=== PATIENT | female | born 1960 | race Caucasian/White ===

== ENCOUNTER 2021-10-03 15:28 | Emergency (ER) | payer BC, OTHER ==
--- OUTSIDE RECORDS SUMMARY | 2021-10-03 15:30 | XMS REPORT | Continuity of Care Document ---
:1960 Author Organization [facility] t Address [address] [place] [address] Care Team Providers Name Role Phone CHASIDY Attending Clinician Unavailable Payers Payer Name Policy Type Policy Number Effective Date Expiration Date S ourjasmyne [employer] MEDICARE ADV [id number] 2019 00:00:00 Problems This patient has no known problems. Allergies, Adverse Reactions, Alerts Allergy Allergy Status Severity Reaction(s) Onset Inactive Treating Comm ents Source Name Type Date Date Clinician DIAZEPAM DRUG Active High ITCHING 2019-0 [facility] INGREDI 7-06 ity of 00:00: [address] MEPERIDI DRUG Active ITCHING 2016-0 Univers NE INGREDI 4-12 ity of 00:00: [address] NO KNOWN Drug Active Univers ALLERGIE Class ity of [facility] Medications This patient has no known medications. Procedures This patient has no known procedures. Encounters Start End Encounter Admission Attending Care Care Encounter Source Date/Time Date/Time Type Type Clinicians Facility Department ID 2019-12-07 2019-12-07 Outpatient R CHASIDY [facility] [id number] [facility] 13:30:00 13:30:00 ERASMO monteiro [facility] Results This patient has no known results.
--- NOTE | 2021-10-03 17:06 | RAD REPORT ---
EXAM DESCRIPTION: RAD - Chest Pa And Lat (2 Views) - 10/03/2021 4:55 pm CLINICAL HISTORY: Cough COMPARISON: None TECHNIQUE: Frontal and lateral views of the chest were obtained. FINDINGS: The lungs are clear of a peripheral mass or consolidation. Mild prominence of the intersti tial pattern is believed be baseline. Heart size is normal and central vasculature is within normal limits. No pleural effusion or pneumothorax seen. No acute bony finding noted. No aortic abnormal ity. IMPRESSION: No acute cardiopulmonary process.
[2021-10-03 18:41] LABS: SARS-COV-2 RT PCR NEGATIVE (NEGATIVE)
--- NOTE | 2021-10-03 22:06 | EDPHYS ---
Physician Documentation [facility] Name: Kandace Worley Age: 61 yrs Sex: Female : 1960 Arrival Date: 10/03/2021 Time: 15:30 Bed 8 Private MD: ED Physician Boris Camargo HPI: 10/03 16:23 This 61 yrs old Female presents to ER via Ambulatory with complaints of Breathing jmm Difficulty, Chest Congestion. 16:23 The patient has shortness of breath at rest. Onset: The symptoms/episode began/occurred jmm gradually. Duration: The symptoms are continuous, and are steadily getting worse. The patient's shortness of breath is aggravated by nothing, is alleviated by nothing. Associated signs and symptoms: Pertinent positives:. Is a 61-year-old female that presents emerged part with complaints of shortness of breath, cough, sore throat, fatigue been over the past 3 days. Patient denies chest pain.. Historical: - Allergies: 18:14 No Known Allergies; ph - PSHx: 15:48 hysterectomy; ll1 - Immunization history:: Client reports receiving the 2nd dose of the Covid vaccine. - Social history:: Smoking status: Patient reports the use of cigarette tobacco products, 1 or 2 cigs/day. ROS: 16:23 Cardiovascular: Negative for chest pain, palpitations, and edema. jmm 16:23 Constitutional: Positive for chills, fatigue. 16:23 ENT: Positive for sore throat. 16:23 Respiratory: Positive for cough, wheezing. 16:23 All other systems are negative. Exam: 16:23 Constitutional: This is a well developed, well nourished patient who is awake, alert, jmm and in no acute distress. Head/Face: atraumatic. Eyes: EOMI, no conjunctival erythema appreciated 16:23 Neck: Trachea midline, Supple Chest/axilla: Normal chest wall appearance and motion. Cardiovascular: Regular rate and rhythm. No edema appreciated 16:23 Abdomen/GI: Non distended, soft Back: Normal ROM Skin: General appearance color normal MS/ Extremity: Moves all extremities, no obvious deformities appreciated, no edema noted to the lower extremities Neuro: Awake and alert Psych: Behavior is normal, Mood is normal, Patient is cooperative and pleasant 16:23 ENT: Posterior pharynx: erythema, that is moderate. 16:23 Respiratory: the patient does not display signs of respiratory distress, Respirations: normal, Breath sounds: wheezing: that is moderate. Vital Signs: 15:46 BP 159 / 71; Pulse 68; Resp 22; Temp 98.8; Pulse Ox 95% ; Weight 107.95 kg; Height 5 ll1 ft. 3 in. (160.02 cm); Pain 5/10; 17:30 BP 146 / 78; Pulse 68; Resp 18; Pulse Ox 100% on Nebulizer Mask; ph 19:10 BP 144 / 67; Pulse 70; Resp 18; Pulse Ox 95% on R/A; ph 21:13 BP 130 / 69; Pulse 103; Resp 17; Pulse Ox 95% on R/A; ll3 15:46 Body Mass Index 42.16 (107.95 kg, 160.02 cm) ll1 MDM: 17:07 Patient medically screened. [facility] 22:03 Data reviewed: vital signs, nurses notes. Counseling: I had a detailed discussion with [facility] the patient and/or guardian regarding: the historical points, exam findings, and any diagnostic results supporting the discharge/admit diagnosis, lab results, radiology results, the need for outpatient follow up, to return to the emergency department if symptoms worsen or persist or if there are any questions or concerns that arise at home. ED course: Decreased wheezing on auscultation. Patient vies follow-up PCP and otherwise given strict return precautions. Patient understood agrees plan of care.. 10/03 17:06 Order name: COVID-19/FLU A+B (Document "Date of Onset" if Symptomatic); Complete Time: [facility] 18:42 10/03 18:27 Order name: Strep; Complete Time: 19:01 [facility] 10/03 16:22 Order name: XRAY Chest Pa And Lat (2 Views); Complete Time: 17:08 rn 10/03 19:02 Order name: Throat Culture [facility] 10/03 19:14 Order name: Saline Lock; Complete Time: 20:39 [facility] Administered Medications: 17:35 Drug: Xopenex (levalbuterol) (3) 1.25 mg Route: Inhalation; ph 19:12 Follow up: Response: No adverse reaction ph 17:35 Drug: Decadron (dexamethasone) 10 mg Route: IM; Site: right deltoid; ph 19:12 Follow up: Response: No adverse reaction ph 20:13 Drug: Albuterol - atroVENT (ipratropium) (3:1) (2.5 mg - 0.5 mg) 3 ml Route: Nebulizer; ll3 21:12 Follow up: Response: No adverse reaction; Marked relief of symptoms ll3 20:38 Drug: Magnesium Sulfate 1 grams Route: IVPB; Infused Over: 1 hrs; Site: right forearm; vc1 21:12 Follow up: Response: No adverse reaction; Marked relief of symptoms; IV Status: ll3 Completed infusion; IV Intake: 100ml Disposition: 10/04 07:13 Co-signature as Attending Physician, Boris Camargo MD. rn Disposition Summary: 10/03/21 22:04 Discharge Ordered Location: Home [facility] Condition: Stable [facility] Diagnosis - Acute pharyngitis, unspecified [facility] - Wheezing [facility] Followup: [facility] - With: Private Physician - When: 2 - 3 days - Reason: Recheck today's complaints, Continuance of care, Re-evaluation by your physician Discharge Instructions: - Discharge Summary Sheet [facility] - Acute Bronchitis, Adult [facility] - Pharyngitis [facility] Forms: - Medication Reconciliation Form [facility] - Thank You Letter [facility] - Antibiotic Education [facility] - Prescription Opioid Use [facility] Prescriptions: - albuterol sulfate 90 mcg/actuation Inhalation HFA aerosol inhaler - inhale 2 puff by INHALATION route every 4 hours; 1 Pump; Refills: 0, Product [facility] Selection Permitted - cefdinir 300 mg Oral capsule - take 1 capsule by ORAL route every 12 hours; 20 capsule; Refills: 0, Product [facility] Selection Permitted - Prednisone 20 mg Oral Tablet - take 3 tablets by ORAL route once daily for 5 days; 15 tablet; Refills: 0, [facility] Product Selection Permitted Signatures: Dispatcher [employer] EDShahbaz Toure PA PA [facility] Boris Camargo MD MD rn Hall, Patricia, RN RN ph Lewis, Lynsay, RN RN ll1 Lucas Syed RN RN ll3 Myrna De Los Santos RN RN vc1 Corrections: (The following items were deleted from the chart) 10/03 15:50 15:48 Allergies: Valium; ll1 ll1 15:50 15:48 PMHx: Hypertensive disorder; ll1 ll1 15:50 15:48 PMHx: RLS; ll1 ll1 15:50 15:48 PMHx: Diabetes mellitus; ll1 ll1 15:50 15:48 PMHx: panic attacks; ll1 ll1 15:50 15:48 PSHx: None; ll1 ll1
--- NOTE | 2021-10-03 22:06 | ER ---
Nurse's Notes [facility] Name: Kandace Worley Age: 61 yrs Sex: Female : 1960 Arrival Date: 10/03/2021 Time: 15:30 Bed 8 Private MD: Diagnosis: Acute pharyngitis, unspecified;Wheezing Presentation: 10/03 15:46 Chief complaint: Patient states: SOB, cough, congestion, sore throat, achy ears since ll1 Saturday. No known fever. Hoarse voice. Coronavirus screen: Vaccine status: Patient reports receiving the 2nd dose of the covid vaccine. Client denies travel out of the [place] in the last 14 days. congestion, cough unrelated to allergies, difficulty breathing, fatigue, headache, muscle pain, sore throat, Client presents with at least one sign or symptom that may indicate coronavirus-19. Standard/surgical mask placed on the client. Ebola Screen: Patient denies travel to an Ebola-affected area in the 21 days before illness onset. Initial Sepsis Screen: Does the patient meet any 2 criteria? No. Patient's initial sepsis screen is negative. Does the patient have a suspected source of infection? Yes: Productive cough/pneumonia. Risk Assessment: Do you want to hurt yourself or someone else? Patient reports no desire to harm self or others. Onset of symptoms was September 30, 2021. 15:46 Method Of Arrival: Ambulatory ll1 15:46 Acuity: JAK 3 ll1 Triage Assessment: 15:50 General: Appears uncomfortable, ill, Behavior is cooperative, appropriate for age. ll1 Pain: Complains of pain in head Quality of pain is described as aching. Neuro: Reports headache. Respiratory: Reports shortness of breath cough that is Onset: The symptoms/episode began/occurred 3-4 days, the patient has moderate shortness of breath. Historical: - Allergies: 18:14 No Known Allergies; ph - PSHx: 15:48 hysterectomy; ll1 - Immunization history:: Client reports receiving the 2nd dose of the Covid vaccine. - Social history:: Smoking status: Patient reports the use of cigarette tobacco products, 1 or 2 cigs/day. Screenin:10 Abuse screen: Denies threats or abuse. Denies injuries from another. Nutritional ph screening: No deficits noted. Tuberculosis screening: No symptoms or risk factors identified. Fall Risk None identified. Assessment: 17:11 General: Appears in no apparent distress. Behavior is calm, cooperative, appropriate ph for age. Pain: Complains of pain in right ear and left ear. Neuro: Paige Agitation-Sedation Scale (RASS): 0 - Alert and Calm Level of Consciousness is awake, alert, obeys commands, Oriented to person, place, time, situation. Cardiovascular: Reports shortness of breath, Capillary refill < 3 seconds in bilateral fingers Patient's skin is warm and dry. Respiratory: Reports shortness of breath cough that is Airway is patent Respiratory effort is even, unlabored, Respiratory pattern is regular, symmetrical. GI: No signs and/or symptoms were reported involving the gastrointestinal system. EENT: Reports pain in right ear and left ear when swallowing. Derm: Skin is intact, Skin is pink, warm \T\ dry. 21:13 Reassessment: Patient and/or family updated on plan of care and expected duration. Pain ll3 level reassessed. Patient is alert, oriented x 3, equal unlabored respirations, skin warm/dry/pink. Patient states symptoms have improved. 22:34 Cardiovascular: Rhythm is regular. Respiratory:. vc1 Vital Signs: 15:46 BP 159 / 71; Pulse 68; Resp 22; Temp 98.8; Pulse Ox 95% ; Weight 107.95 kg; Height 5 ll1 ft. 3 in. (160.02 cm); Pain 5/10; 17:30 BP 146 / 78; Pulse 68; Resp 18; Pulse Ox 100% on Nebulizer Mask; ph 19:10 BP 144 / 67; Pulse 70; Resp 18; Pulse Ox 95% on R/A; ph 21:13 BP 130 / 69; Pulse 103; Resp 17; Pulse Ox 95% on R/A; ll3 15:46 Body Mass Index 42.16 (107.95 kg, 160.02 cm) ll1 ED Course: 15:30 Patient arrived in ED. am2 15:48 Triage completed. ll1 15:50 Arm band placed on. ll1 16:29 Shahbaz Marrero PA is PHCP. m 16:29 Boris Camargo MD is Attending Physician. jmm 16:56 XRAY Chest Pa And Lat (2 Views) In Process Unspecified. EDMS 17:09 Bonita Acevedo, RN is Primary Nurse. ph 17:12 Patient has correct armband on for positive identification. Bed in low position. Call ph light in reach. Side rails up X 1. network security officer on. Pulse ox on. Door closed. Noise minimized. Warm blanket given. 18:14 No provider procedures requiring assistance completed. ph 18:36 Strep swab sent to lab. vg1 19:27 Primary Nurse role handed off by Bonita Acevedo RN mw2 20:38 Inserted saline lock: 22 gauge in right forearm, using aseptic technique. vc1 22:35 IV discontinued, intact, bleeding controlled, No redness/swelling at site. Pressure vc1 dressing applied. Administered Medications: 17:35 Drug: Xopenex (levalbuterol) (3) 1.25 mg Route: Inhalation; ph 19:12 Follow up: Response: No adverse reaction ph 17:35 Drug: Decadron (dexamethasone) 10 mg Route: IM; Site: right deltoid; ph 19:12 Follow up: Response: No adverse reaction ph 20:13 Drug: Albuterol - atroVENT (ipratropium) (3:1) (2.5 mg - 0.5 mg) 3 ml Route: Nebulizer; ll3 21:12 Follow up: Response: No adverse reaction; Marked relief of symptoms ll3 20:38 Drug: Magnesium Sulfate 1 grams Route: IVPB; Infused Over: 1 hrs; Site: right forearm; vc1 21:12 Follow up: Response: No adverse reaction; Marked relief of symptoms; IV Status: ll3 Completed infusion; IV Intake: 100ml Intake: 21:12 IV: 100ml; Total: 100ml. ll3 Outcome: 22:04 Discharge ordered by MD. self 22:35 Discharged to home ambulatory, with family. vc1 22:35 Condition: good 22:35 Discharge instructions given to patient, Instructed on discharge instructions, follow up and referral plans. medication usage, Demonstrated understanding of instructions, follow-up care, medications, Prescriptions given X 2. 22:35 Patient left the ED. vc1 Signatures: Dispatcher [employer] EDMS Shahbaz Marrero PA PA jmm Hall, Patricia, RN RN ph Moreno, Amanda am2 Eldon Jerome mw2 Mary Hallman RN RN vg1 Melanie Gallardo RN RN ll1 Lucas Syed RN RN ll3 Myrna De Los Santos RN RN vc1 Corrections: (The following items were deleted from the chart) 15:50 15:48 Allergies: Valium; 1 ll1 15:50 15:48 PMHx: Hypertensive disorder; 1 ll1 15:50 15:48 PMHx: RLS; [place] [id number] 15:50 15:48 PMHx: Diabetes mellitus; [facility] 15:50 15:48 PMHx: panic attacks; [facility] 15:50 15:48 PSHx: None; 1 1
[2021-10-04 00:38] VITALS: TEMP 98.8
[2021-10-04 00:41] VITALS: O2SAT 95
[2021-10-04 00:43] VITALS: BP 130/69
== END 2021-10-03 22:35 | disposition home or self-care (01) ==
LOC: ER 15:28
DX: J02.9 Acute pharyngitis, unspecified (principal); R06.2 Wheezing; R06.02 Shortness of breath; Z20.822 Contact with and (suspected) exposure to COVID-19; F17.210 Nicotine dependence, cigarettes, uncomplicated
CPT/HCPCS: 96365; 87070; 87081; 0240U; 71046; 94640; 96372; 99285

== ENCOUNTER 2022-01-09 11:54 | Day surgery (SDC) | payer OTHER ==
[2022-01-04 11:59] LABS: Absolute Lymphocytes (CBC) 2.3 K/uL (0.7-4.9); Hematocrit 39.9 % (36.0-45.0); Lymphocytes % 34.6 % (15.3-44.8); MCV 85.3 fL (80-100); MPV 7.7 fL (7.6-11.3); RBC Red Blood Cell Count 4.68 M/uL (3.86-4.86)
[2022-01-04 12:20] LABS: Potassium 4.1 mmol/L (3.5-5.1)
[2022-01-04 12:22] LABS: SARS-CoV-2 Antigen Rapid Res Negative (Negative)
--- NOTE | 2022-01-04 13:54 | EKG ---
Test Date: 2022-01-04 Test Time: 12:01:01 Bobbin Handler: MICKY MEASUREMENT RESULTS: Intervals: Rate: 46 MA: 144 QRSD: 86 QT: 470 QTc: 411 Bedias: P: 68 MA: 144 QRS: 8 T: 56 INTERPRETIVE STATEMENTS: Marked sinus bradycardia Abnormal ECG Compared to ECG 12/11/2002 12:47:00 No significant changes Electronically Signed On 01-04-22 13:54:30 CDT by Nasim Zapien
--- NOTE | 2022-01-05 15:10 | EKG ---
Test Date: 2022-01-04 Test Time: 12:01:39 Biomedical Engineering Supervisor: TF MEASUREMENT RESULTS: Intervals: Rate: 51 WY: 146 QRSD: 84 QT: 472 QTc: 435 Indian: P: 72 WY: 146 QRS: 6 T: 56 INTERPRETIVE STATEMENTS: Sinus bradycardia Otherwise normal ECG Compared to ECG 01/04/2022 12:01:01 No significant changes Electronically Signed On 01-05-22 15:08:19 CDT by Nasim Zapien
[~2022-01-09 11:54] MED LIST: CEFAZOLIN 2 GM IN 0.9% NACL 0 GM/0 ML BAG ONE; Ringers Lactate 0 ML IV ONE
[2022-01-09] MEDS ORDERED: NA CHLORIDE 0.9% 1,000 ML ONE (12:19)
[2022-01-09] MEDS ORDERED: CEFAZOLIN SODIUM 1 GM/VIAL ONE (12:19)
[2022-01-09] MEDS ORDERED: dexAMETHasone 4 MG/ML VIAL ONE (13:35)
[2022-01-09] MEDS ORDERED: FENTANYL CITR 100 MCG/2 ML ONE (13:35)
[2022-01-09] MEDS ORDERED: LIDOCAINE 1% MPF 5 ML VIAL ONE (13:35)
[2022-01-09] MEDS ORDERED: ROPLVACAINE HCL 40 ML ONE (13:36)
[2022-01-09] MEDS ORDERED: MIDAZOLAM HCL 2 MG/2 ML INJ ONE (13:37)
[2022-01-09] MEDS ORDERED: LIDOCAINE 2% MPF 5 ML VIAL ONE (14:18)
[2022-01-09] MEDS ORDERED: ROCURONIUM 50 MG/5 ML VIAL IV ONE (14:18)
[2022-01-09] MEDS ORDERED: propofoL 200 MG/20 ML VIAL IV ONE (14:18)
[2022-01-09] MEDS ORDERED: ONDANSETRON 4 MG/2 ML VIAL ONE (14:20)
[2022-01-09] MEDS ORDERED: VECURONIUM 10 MG/VIAL IV ONE (15:03)
[2022-01-09] MEDS ORDERED: FENTANYL CITR 250 MCG/5 ML ONE (15:03)
[2022-01-09] MEDS ORDERED: NS 0.9% VIAL 0 ML ONE (15:03)
[2022-01-09] MEDS ORDERED: EPHEDRINE SULF 50 MG/ML VIAL ONE (15:31)
[2022-01-09] MEDS ORDERED: GLYCOPYRROLATE 0.2 MG/ML SYR ONE (16:02)
[2022-01-09] MEDS ORDERED: NEOSTIGMINE 1 MG/ML -10 ML VIAL ONE (16:02)
[2022-01-09] MEDS ORDERED: HYDROMORPHONE HCL 1 MG/ML INJ ONE (16:48)
[2022-01-09 17:15] VITALS: BP 118/56; TEMP 97.6; O2SAT 95
[2022-01-09] MEDS: HYDROCODONE/APAP 5/325 MG TAB ONE (17:27)
--- NOTE | 2022-01-09 21:07 | OP ---
Date of Procedure: 01/09/2022 Surgeon: Shon Hatfield MD Preoperative Diagnoses: Right shoulder impingement, acromioclavicular arthritis, possible biceps pat hology, and at least a near full-thickness rotator cuff tear. Postoperative Diagnoses: 1.Fraying of the biceps anchor. 2.Downward sloping acromion with impingement. 3.Significant acromioclavicular arthritis. 4.Small full-thickness rotator cuff tear. Estimated Blood Loss: 20 cc. Complications: There were no complications. Specimen: No pathology specimen sent. Indications For Operation: Ms. Worley is a 62-year-old female, who has been seen by other physician s in the past. She has had an MRI by other physicians in the past and the MRI demonstrated what appe ared to be a high-grade partial-thickness tear of the rotator cuff. Despite conservative measures, s he was unable to obtain relief. She also does have acromioclavicular arthritis by x-ray and MRI. Ri sks, benefits, and alternatives to different methods of treating this have been discussed with the kaylah broussard including those associated with the planned procedure. She says she understands things as pres ented and wishes to proceed. She says she also does understand the long rehabilitated time that is n eeded. Description Of Procedure: The patient was taken to the operating room and placed in supine position. General anesthesia was obtained by Anesthesia staff. Following this, she was then placed in the be ach chair position, where her head and neck were appropriately positioned by Anesthesia. After this, we had good visualization and her right upper extremity was then prepped and draped in usual sterile fashion for arthroscopy. A standard posterior arthroscopic portal was then made and the arthroscopi c camera was passed atraumatically with 1 pass into the shoulder. She does have a very large arm chula ing anatomic landmarks difficult, however, this was not overly difficult. The shoulder was then exam ined. The biceps tendon itself appeared to be doing quite well, however, there is some fraying of th e biceps anchor as well as some fraying of the undersurface of the rotator cuff. Care was taken to r emain lateral to the coracoid and somewhat superior as a second anterior incision was then made. Thi s is a very large shoulder, it is difficult to establish new landmarks, however, this was also fortun ately quite easy entering in at the planned position without difficulty. After this, the cannula was used and a 3.5 shaver was then used to debride back the undersurface of the rotator cuff as well as the fraying at the biceps anchor. After this, the arthroscopic instruments were removed. Posterior portal was then stapled shut. The arm was then re-prepped and gloves and equipment were changed. Af ter this, anatomic landmarks were again difficult to identify because of the patient's size, however, an anterior incision, which is slightly larger what I usually make, is positioned over the midportio n of the acromion. This was taken down carefully through the skin only. Meticulous hemostasis being maintained using Bovie electrocautery. This leads down to a significant amount of adipose tissue, w hich we were able to divide using scissors and knife until we reached the muscle and acromion. After this, the scissors were used to gently spread and allow this as working as a working portal. The an terior leading edge of the deltoid was then carefully detached from the acromion up to the level of t he clavicle. This was then tagged for later repair. A Miguel was used to establish a good distanc e between the acromion and shoulder and the acromioclavicular ligament is divided. This was also tag ged by a small anterior acromioplasty as well as the subacromial acromioplasty was then performed usi ng a combination of saw as well as a rasp. After this has been performed, there was palpation of the acromioclavicular joint, which appeared to be quite involved and decision was made to proceed with a standard distal clavicle excision, removing only as much as it is necessary to allow for full crosse d-arm adduction without impingement. Care was taken to maintain the inferior ligaments. The rotator cuff was then visualized. There did appear to be a small tear of the anterior leading edge. This d id appear to be also full-thickness. Decision was made to move forward with formal repair using a Ju libertyerKnot suture anchor and it was tied down in a watertight fashion. There were no further rotator c uff pathology that could be readily identified. The wound was irrigated and the deltoid was then rep aired over the end of the clavicle to the posterior musculature, this was followed by repair of the d eltoid through a bone tunnel using Ethibond as well as oversewn using Vicryl sutures. After this was again irrigated and the skin was closed using aris, the patient was then placed in a sterile dres sing as well as a sling, awakened, and taken to recovery room. GIANLUCA Voice ID: [id number] Report ID: [id number]
== END 2022-01-09 17:48 | disposition home or self-care (01) ==
LOC: OR 11:54
PROVIDERS: ATTEND Orthopaedic Surgery
PROC: 0RNJ4ZZ Release Right Shoulder Joint, Percutaneous Endoscopic Approach (ICD-10-PCS; 2022-01-09)
PROC: 0RNJ0ZZ Release Right Shoulder Joint, Open Approach (ICD-10-PCS; 2022-01-09)
PROC: 0LM14ZZ Reattachment of Right Shoulder Tendon, Percutaneous Endoscopic Approach (ICD-10-PCS; principal; 2022-01-09 14:00)
DX: M75.121 Complete rotator cuff tear or rupture of right shoulder, not specified as traumatic (principal); M75.41 Impingement syndrome of right shoulder; M19.011 Primary osteoarthritis, right shoulder; Z20.822 Contact with and (suspected) exposure to COVID-19
CPT/HCPCS: 29827; 29826; 23130; 93005 ×2; 85025; 80048; 36415; 82947 ×2; 87811; J2704; J1100; J2710; J2250; J3010; J2795; J7030; J2405; J0690; J1170; J7120

== ENCOUNTER 2023-01-09 08:54 | Inpatient (IN) | payer OTHER ==
--- OUTSIDE RECORDS SUMMARY | 2023-01-09 08:58 | XMS REPORT | Continuity of Care Document ---
:1960 Author Organization [facility] Address [address] [place] [address] [place] [id number] Care Team Providers Name Role Phone Keanu Ponce Attending Clinician ERASMO UMAÑA Attending Clinician Unavailable Payers Payer Name Policy Type Policy Number Effective Date Expiration Date S ourjasmyne [employer] MEDICARE ADV [id number] 2019 00:00:00 Problems Condition Condition Condition Status Onset Resolution Last Treating Co mments Source Name Details Category Date Date Treatment Clinician Date [id number] Neck pain Problem Comm on [facility] [id number] Nontraumat Problem C ommon [id number] ic [facility] incomplete - [facility] tear of right [facility] rotator [facility] cuff Center [id number] Nontraumat Problem C ommon [id number] ic Spirit complete - [facility] tear of right [facility] rotator [facility] cuff Center [id number] Pain, Problem Commo n [id number] joint, [facility] shoulder, - [facility] right [facility] [id number] 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[facility] vicular joint [facility] [id number] Status Problem Common post [facility] shoulder - [facility] surgery [facility] Allergies, Adverse Reactions, Alerts Allergy Allergy Status Severity Reaction(s) Onset Inactive Treating Comm ents Source Name Type Date Date Clinician DIAZEPAM DRUG Active High ITCHING [facility] INGREDI 7-06 ity of 00:00: [address] [place] MEPERIDI DRUG Active ITCHING 2017-0 Univers NE INGREDI 4-12 ity of 00:00: [address] NO KNOWN Drug Active Univers ALLERGIE Class ity of [facility] diazepam diazepam Active Unknown Commo n [facility] meperidi meperidi Active Unknown Commo n ne ne [facility] Social History Social Habit Start Date Stop Date Quantity Comments Source Sex Assigned At Com mon [facility] History of Tobacco Use Co mmon [facility] Smoking Status Start Date Stop Date Source Former Smoker 2022-07-09 00:00:00 2022-07-09 00:00:00 [facility] Medications Ordered Filled Start Stop Current Ordering Indication Dosage Frequency Signature Comments Components Source Medication Medication Date Date Medication? Clinician (SIG) Name Name Lidocaine Lidocaine 0 No 10mg Com 07-04 Spirit 00:00: [facility] Kenalog Kenalog 0 No 40mg Common (Triamcinol (Triamcinol 2-01 S pirit one) one) 00:00: [facility] Lidocaine Lidocaine 2022-0 No 10mg Com 07-04 Spirit 00:00: [facility] Kenalog Kenalog 2022-0 No 40mg Common (Triamcinol (Triamcinol 2-01 S pirit one) one) 00:00: - [facility] Mobic 7.5 Mobic 7.5 2021-06- No 1{table QD Mobic 7.5 MG MG 004-04 t} MG 00:00: 00:00 00 :00 Mobic 7.5 Mobic 7.5 2021-06- No 1{table QD Mobic 7.5 MG MG 004-04 t} MG 00:00: 00:00 00 :00 Mobic 7.5 Mobic 7.5 2021-06- No 1{table QD Mobic 7.5 MG MG 004-04 t} MG 00:00: 00:00 00 :00 HYDROcodone HYDROcodone 0 No 1{table HYDROcodon -Acetaminop -Acetaminop 8-08 t_as_ne e-Acetamin hen 7.5-325 hen 7.5-325 00:00: eded} ophen MG MG 00 7.5-325 MG HYDROcodone HYDROcodone No 1{table HYDROcodon -Acetaminop -Acetaminop 8-08 t_as_ne e-Acetamin hen 7.5-325 hen 7.5-325 00:00: eded} ophen MG MG 00 7.5-325 MG HYDROcodone HYDROcodone No 1{table HYDROcodon -Acetaminop -Acetaminop 8-08 t_as_ne e-Acetamin hen 7.5-325 hen 7.5-325 00:00: eded} ophen MG MG 00 7.5-325 MG HYDROcodone HYDROcodone No 1{table HYDROcodon -Acetaminop -Acetaminop 8-08 t_as_ne e-Acetamin hen 7.5-325 hen 7.5-325 00:00: eded} ophen MG MG 00 7.5-325 MG HYDROcodone HYDROcodone No 1{table HYDROcodon -Acetaminop -Acetaminop 8-08 t_as_ne e-Acetamin hen 7.5-325 hen 7.5-325 00:00: eded} ophen MG MG 00 7.5-325 MG HYDROcodone HYDROcodone No 1{table HYDROcodon -Acetaminop -Acetaminop 8-08 t_as_ne e-Acetamin hen 7.5-325 hen 7.5-325 00:00: eded} ophen MG MG 00 7.5-325 MG Montelukast Montelukast No Montelukas Sodium Sodium t Sodium rOPINIRole rOPINIRole No rOPINIRole HCl HCl HCl Losartan Losartan No Losartan Potassium Potassium Potassium Levocetiriz Levocetiriz No Levocetiri ine ine zine Dihydrochlo Dihydrochlo Dihydrochl ride ride oride OneTouch OneTouch No OneTouch Verio Verio Verio rOPINIRole rOPINIRole No rOPINIRole HCl HCl HCl OneTouch OneTouch No OneTouch UltraSoft UltraSoft UltraSoft Lancets Lancets Lancets Losartan Losartan No Losartan Potassium Potassium Potassium Levocetiriz Levocetiriz No Levocetiri ine ine goyo Dihydrochlo Dihydrochlo Dihydrochl ride ride oride Meloxicam Meloxicam No Meloxicam Albuterol Albuterol No Albuterol Sulfate HFA Sulfate HFA Sulfate HFA hydroCHLORO hydroCHLORO No hydroCHLOR thiazide thiazide Othiazide Pseudoeph-B Pseudoeph-B No Pseudoeph- romphen-DM romphen-DM Bromphen-D M Montelukast Montelukast No Montelukas Sodium Sodium t Sodium DULoxetine DULoxetine No DULoxetine HCl HCl HCl OneTouch OneTouch No OneTouch Verio Verio Verio Rosuvastati Rosuvastati No Rosuvastat n Calcium n Calcium in Calcium predniSONE predniSONE No predniSONE metFORMIN metFORMIN No metFORMIN HCl ER HCl ER HCl ER OneTouch OneTouch No OneTouch Verio Verio Verio OneTouch OneTouch No OneTouch UltraSoft UltraSoft UltraSoft Lancets Lancets Lancets hydroCHLORO hydroCHLORO No hydroCHLOR thiazide thiazide Othiazide Levocetiriz Levocetiriz No Levocetiri ine ine goyo Limchlo Dihydrochlo Dihydrochl ride ride oride Montelukast Montelukast No Montelukas Sodium Sodium t Sodium Albuterol Albuterol No Albuterol Sulfate HFA Sulfate HFA Sulfate HFA Rosuvastati Rosuvastati No Rosuvastat n Calcium n Calcium in Calcium Pseudoeph-B Pseudoeph-B No Pseudoeph- romphen-DM romphen-DM Bromphen-D M Losartan Losartan No Losartan Potassium Potassium Potassium predniSONE predniSONE No predniSONE DULoxetine DULoxetine No DULoxetine HCl HCl HCl Meloxicam Meloxicam No Meloxicam metFORMIN metFORMIN No metFORMIN HCl ER HCl ER HCl ER rOPINIRole rOPINIRole No rOPINIRole HCl HCl HCl Montelukast Montelukast No Montelukas Sodium Sodium t Sodium metFORMIN metFORMIN No metFORMIN HCl ER HCl ER HCl ER OneTouch OneTouch No OneTouch Verio Verio Verio predniSONE predniSONE No predniSONE OneTouch OneTouch No OneTouch UltraSoft UltraSoft UltraSoft Lancets Lancets Lancets rOPINIRole rOPINIRole No rOPINIRole HCl HCl HCl DULoxetine DULoxetine No DULoxetine HCl HCl HCl Pseudoeph-B Pseudoeph-B No Pseudoeph- romphen-DM romphen-DM Bromphen-D M Meloxicam Meloxicam No Meloxicam Levocetiriz Levocetiriz No Levocetiri ine ine zine Dihydrochlo Dihydrochlo Dihydrochl ride ride oride Losartan Losartan No Losartan Potassium Potassium Potassium Albuterol Albuterol No Albuterol Sulfate HFA Sulfate HFA Sulfate HFA hydroCHLORO hydroCHLORO No hydroCHLOR thiazide thiazide Othiazide Rosuvastati Rosuvastati No Rosuvastat n Calcium n Calcium in Calcium Montelukast Montelukast No Montelukas Sodium Sodium t Sodium metFORMIN metFORMIN No metFORMIN HCl ER HCl ER HCl ER OneTouch OneTouch No OneTouch Verio Verio Verio predniSONE predniSONE No predniSONE OneTouch OneTouch No OneTouch UltraSoft UltraSoft UltraSoft Lancets Lancets Lancets rOPINIRole rOPINIRole No rOPINIRole HCl HCl HCl DULoxetine DULoxetine No DULoxetine HCl HCl HCl Pseudoeph-B Pseudoeph-B No Pseudoeph- romphen-DM romphen-DM Bromphen-D M Meloxicam Meloxicam No Meloxicam Levocetiriz Levocetiriz No Levocetiri ine ine zine Dihydrochlo Dihydrochlo Dihydrochl ride ride oride Losartan Losartan No Losartan Potassium Potassium Potassium Albuterol Albuterol No Albuterol Sulfate HFA Sulfate HFA Sulfate HFA hydroCHLORO hydroCHLORO No hydroCHLOR thiazide thiazide Othiazide Rosuvastati Rosuvastati No Rosuvastat n Calcium n Calcium in Calcium rOPINIRole rOPINIRole No rOPINIRole HCl HCl HCl OneTouch OneTouch No OneTouch UltraSoft UltraSoft UltraSoft Lancets Lancets Lancets Losartan Losartan No Losartan Potassium Potassium Potassium Levocetiriz Levocetiriz No Levocetiri ine ine zine Dihydrochlo Dihydrochlo Dihydrochl ride ride oride Meloxicam Meloxicam No Meloxicam Albuterol Albuterol No Albuterol Sulfate HFA Sulfate HFA Sulfate HFA hydroCHLORO hydroCHLORO No hydroCHLOR thiazide thiazide Othiazide Pseudoeph-B Pseudoeph-B No Pseudoeph- romphen-DM romphen-DM Bromphen-D M Montelukast Montelukast No Montelukas Sodium Sodium t Sodium DULoxetine DULoxetine No DULoxetine HCl HCl HCl OneTouch OneTouch No OneTouch Verio Verio Verio Rosuvastati Rosuvastati No Rosuvastat n Calcium n Calcium in Calcium predniSONE predniSONE No predniSONE metFORMIN metFORMIN No metFORMIN HCl ER HCl ER HCl ER OneTouch OneTouch No OneTouch UltraSoft UltraSoft UltraSoft Lancets Lancets Lancets Albuterol Albuterol No Albuterol Sulfate HFA Sulfate HFA Sulfate HFA hydroCHLORO hydroCHLORO No hydroCHLOR thiazide thiazide Othiazide Rosuvastati Rosuvastati No Rosuvastat n Calcium n Calcium in Calcium Pseudoeph-B Pseudoeph-B No Pseudoeph- romphen-DM romphen-DM Bromphen-D M predniSONE predniSONE No predniSONE metFORMIN metFORMIN No metFORMIN HCl ER HCl ER HCl ER Meloxicam Meloxicam No Meloxicam DULoxetine DULoxetine No DULoxetine HCl HCl HCl Vital Signs Vital Name Observation Time Observation Value Comments Source height 2022-07-04 13:00:00 63 [in_i] [facility] weight 2022-07-04 13:00:00 244 [lb_av] [facility] temperature 2022-07-04 13:00:00 97.6 [degF] [facility] bmi 2022-07-04 13:00:00 43.22 kg/m2 [facility] blood pressure 2022-07-04 13:00:00 134 mm[Hg] [facility] - systolic [facility] blood pressure 2022-07-04 13:00:00 88 mm[Hg] [facility] - diastolic [facility] height 2022-03-26 14:30:00 63 [in_i] [facility] weight 2022-03-26 14:30:00 242 [lb_av] [facility] temperature 2022-03-26 14:30:00 97.1 [degF] [facility] bmi 2022-03-26 14:30:00 42.86 kg/m2 [facility] blood pressure 2022-03-26 14:30:00 130 mm[Hg] [facility] - systolic [facility] blood pressure 2022-03-26 14:30:00 80 mm[Hg] [facility] - diastolic [facility] height 2022-02-01 11:00:00 63 [in_i] [facility] weight 2022-02-01 11:00:00 242 [lb_av] Common S pirit [facility] temperature 2022-02-01 11:00:00 97.2 [degF] Common S [facility] bmi 2022-02-01 11:00:00 42.86 kg/m2 Common S [facility] blood pressure 2022-02-01 11:00:00 136 mm[Hg] [facility] - systolic [facility] blood pressure 2022-02-01 11:00:00 80 mm[Hg] Common [facility] - diastolic [facility] Procedures This patient has no known procedures. Encounters Start End Encounter Admission Attending Care Care Encounter Source Date/Time Date/Time Type Type Clinicians Facility Department ID 2022-07-04 Outpatient STLMLC STLC [id number] Common 14:33:02 [id number] [facility] 2022-02-01 Outpatient STLMLC STLMLC [id number] Common 10:50:03 [facility] 2022-01-01 Outpatient STLMLC STLMLC [id number] Common 17:02:01 [facility] 2021-11-23 Outpatient STLMLC STLMLC [id number] Common 10:51:04 [facility] 2022-08-15 2022-08-15 [id number]30:00 Pre-Reg Neurology 00 l Efrain Mason 2022-08-15 2022-08-15 Ambulatory MHIE MNA [id number] [facility] 18:30:00 18:30:00 Pre-Reg Neurology 00 l Efrain Cuevas 2022-08-15 2022-08-15 Outpatient MHIE MHIE [id number] [place] 13:30:00 13:30:00 00 zohreh Cuevas 2022-08-15 2022-08-15 Outpatient BRANDAN Ponce JUANITA [id number] 13:30:00 13:30:00 Keanunetta Cagle 2022-07-05 2022-07-05 (TEL) STLMLC STLMLC [id number] Co mmon 00:00:00 00:00:00 [facility] 2022-07-04 2022-07-04 OFFICE STLMLC STLMLC [id number] Co mmon 00:00:00 00:00:00 VISIT [facility] LEVEL 3 [facility] 2022-03-26 2022-03-26 NON-BILLAB STLMLC STLMLC [id number] Common 00:00:00 00:00:00 LE VISIT [facility] 2022-03-05 2022-03-05 (TEL) STLMLC STLMLC [id number] Co mmon 00:00:00 00:00:00 [facility] 2022-02-01 2022-02-01 NON-BILLAB STLMLC STLMLC [id number] Common 00:00:00 00:00:00 LE VISIT [facility] 2019-12-07 2019-12-07 Outpatient Earnest UMAÑA [facility] [id number] Univers 13:30:00 13:30:00 ERASMO [facility] Results This patient has no known results.
[2023-01-09 09:49] LABS: Absolute Lymphocytes (CBC) 1.6 K/uL (0.7-4.9); Hematocrit 42.4 % (36.0-45.0); Lymphocytes % 24.7 % (15.3-44.8); MCV 86.2 fL (80-100); Platelets 221 thou/uL (152-406); RBC Red Blood Cell Count 4.92 M/uL (3.86-4.86)
[2023-01-09 09:57] LABS: Protime INR 1.15
[2023-01-09 10:13] LABS: Albumin 3.7 g/dL (3.4-5.0); Bilirubin Direct 0.2 mg/dL (0-0.2); Bilirubin Indirect, Calculated 0.5 mg/dL (0.2-0.8); Bilirubin Total 0.7 mg/dL (0.2-1.0); Magnesium 1.9 mg/dL (1.6-2.4); Potassium 3.5 mEq/L (3.5-5.1); Protein, Total 7.1 g/dL (6.4-8.2); Troponin High Sensitivity 4.2 pg/mL (<58.9)
--- NOTE | 2023-01-09 10:46 | RAD REPORT ---
EXAM DESCRIPTION: CT - Head Brain Wo Cont - 01/09/2023 9:58 am CLINICAL HISTORY: cva COMPARISON: No comparisons TECHNIQUE: Noncontrast head CT images were obtained without IV contrast. Multiplanar reformats were generated and reviewed. All CT scans are performed using dose optimization technique as appropriate and may include automated exposure control or mA/KV adjustment according to patient size. FINDINGS: No intracranial hemorrhage, mass, or edema. Midline structures are unremarkable. Normal ventricular caliber for age. Briones-white matter differentiation is preserved, without evidence of acute infarct. No abnormal extra- axial fluid collections. Mastoid air cells and visualized portions of the paranasal sinuses are clear. No acute bony findings. IMPRESSION: No evidence of an acute intracranial process.
--- NOTE | 2023-01-09 10:53 | ER ---
Nurse's Notes [facility] Name: Kandace Worley Age: 63 yrs Sex: Female : 1960 Arrival Date: 01/09/2023 Time: 08:54 Bed 17 Private MD: Diagnosis: New left-sided facial droop, CVA Presentation: 01/09 09:14 Chief complaint: Patient states: she had sudden onset left sided facial pain Saturday kc6 night with teary eyes and blurry vision. chalked it up to getting sick. pt came in today per PCP and for worsening pain. Coronavirus screen: At this time, the client does not indicate any symptoms associated with coronavirus-19. Ebola Screen: No symptoms or risks identified at this time. Initial Sepsis Screen: Does the patient meet any 2 criteria? No. Patient's initial sepsis screen is negative. Does the patient have a suspected source of infection? No. Patient's initial sepsis screen is negative. Risk Assessment: Do you want to hurt yourself or someone else? Patient reports no desire to harm self or others. Onset of symptoms was January 05, 2023. 09:14 Method Of Arrival: Wheelchair kc6 09:14 Acuity: JAK 3 kc6 Triage Assessment: 09:16 General: Appears in no apparent distress. comfortable, obese, well groomed, Behavior is kc6 calm, cooperative, appropriate for age. Pain: Complains of pain in face. EENT: No signs and/or symptoms were reported regarding the EENT system. Neuro: Paige Agitation-Sedation Scale (RASS): 0 - Alert and Calm Level of Consciousness is awake, alert, obeys commands, Oriented to person, place, time, situation, Appropriate for age Gre Instructor are equal bilaterally Moves all extremities. Gait is unsteady, Speech is normal, Facial droop on left, Pupils are PERRLA. Cardiovascular: Heart tones S1 S2 present Capillary refill < 3 seconds. Respiratory: Airway is patent Trachea midline Respiratory effort is even, unlabored, Respiratory pattern is regular, symmetrical. GI: No signs and/or symptoms were reported involving the gastrointestinal system. : No signs and/or symptoms were reported regarding the genitourinary system. Derm: No signs and/or symptoms reported regarding the dermatologic system. Skin is intact, is healthy with good turgor, Skin is pink, warm \T\ dry. Musculoskeletal: No signs and/or symptoms reported regarding the musculoskeletal system. Circulation, motion, and sensation intact. Capillary refill < 3 seconds, Range of motion: intact in all extremities. Historical: - Allergies: 09:16 Valium; kc6 - PMHx: 09:16 Diabetes mellitus; Hypertensive disorder; Anxiety; Depressive disorder; scoliosis; kc6 Arthritis; psoriasis; fatty liver; - PSHx: 09:16 hysterectomy; Tonsillectomy; TUNDE knee replacements; kc6 - Immunization history:: Client reports receiving the 2nd dose of the Covid vaccine, Flu vaccine is up to date. - Social history:: Smoking status: Patient reports the use of cigarette tobacco products, denies chronic smoking, but will smoke occasionally. Screenin:19 [facility] ED Fall Risk Assessment (Adult) History of falling in the last 3 months, kc6 including since admission No falls in past 3 months (0 pts) Confusion or Disorientation No (0 pts) Intoxicated or Sedated No (0 pts) Impaired Gait Yes (1 pt) Mobility Assist Device Used Yes (1 pt) Altered Elimination No (0 pt) Score/Fall Risk Level 0 - 2 = Low Risk. Abuse screen: Denies threats or abuse. Denies injuries from another. Nutritional screening: No deficits noted. Tuberculosis screening: No symptoms or risk factors identified. Assessment: 09:19 Reassessment: please see triage assessment. kc6 10:17 Reassessment: Patient appears in no apparent distress at this time. [facility] assessment. Patient and/or family updated on plan of care and expected duration. Pain level reassessed. Patient is alert, oriented x 3, equal unlabored respirations, skin warm/dry/pink. 11:17 Reassessment: Patient appears in no apparent distress at this time. No changes from kc6 previously documented assessment. Patient and/or family updated on plan of care and expected duration. Pain level reassessed. Patient is alert, oriented x 3, equal unlabored respirations, skin warm/dry/pink. 12:17 Reassessment: Patient appears in no apparent distress at this time. No [facility] assessment. Patient and/or family updated on plan of care and expected duration. Pain level reassessed. Patient is alert, oriented x 3, equal unlabored respirations, skin warm/dry/pink. 13:15 Reassessment: Patient appears in no apparent distress at this time. No changes from kc6 previously documented assessment. Patient and/or family updated on plan of care and expected duration. Pain level reassessed. Patient is alert, oriented x 3, equal unlabored respirations, skin warm/dry/pink. 13:16 Reassessment: attempted to call report to 4th floor. nurse Desi unavailable at this kc6 time. Vital Signs: 09:14 BP 155 / 77; Pulse 62; Resp 19 S; Temp 98.1(O); Pulse Ox 95% on R/A; Weight 106.59 kg kc6 (R); Height 5 ft. 3 in. (R); 10:17 BP 130 / 60; Pulse 48; Resp 17 S; Pulse Ox 98% on R/A; kc6 13:15 BP 139 / 60; Pulse 48; Resp 17 S; Pulse Ox 98% on R/A; kc6 09:14 Body Mass Index 41.63 (106.59 kg, 160.02 cm) kc6 ED Course: 08:56 Patient arrived in ED. im 09:04 Gregorio Elizondo MD is Attending Physician. sp3 09:14 Elsy Waters RN is Primary Nurse. kc6 09:16 Triage completed. kc6 09:16 Arm band placed on. kc6 09:19 Patient has correct armband on for positive identification. Bed in low position. Call kc6 light in reach. Side rails up X 1. Adult w/ patient. 09:32 Stroke CXR 1 View In Process Unspecified. EDMS 09:39 Client placed on continuous cardiac and pulse oximetry monitoring. NIBP monitoring kc6 applied. residential monitor on. 09:39 Inserted saline lock: 20 gauge in right antecubital area, using aseptic technique. kc6 ,using aseptic technique. by Naima Hallman RN Blood collected. Patient maintains SpO2 saturation greater than 95% on room air. 09:59 CT Head Brain wo Cont In Process Unspecified. EDMS 10:51 Mariano Davenport is Hospitalizing Provider. sp3 13:29 No provider procedures requiring assistance completed. Patient admitted, IV remains in kc6 place. Administered Medications: 10:59 Drug: Aspirin PO Chewable Tablet 324 mg Route: PO; kc6 13:15 Follow up: Response: No adverse reaction kc6 Medication: 13:29 VIS not applicable for this client. kc6 Outcome: 10:52 Decision to Hospitalize by Provider. sp3 13:29 Admitted to Med/surg accompanied by tech, via wheelchair, room 413, with chart, Report kc6 called to [facility] We[facility] 13:29 Condition: improved 13:29 Instructed on the need for admit. 13:52 Patient left the ED. kc6 Signatures: Dispatcher [employer] EDMS Gregorio Elizondo MD MD sp3 Elsy Waters RN RN kc6 Violetta Guerrier Corrections: (The following items were deleted from the chart) 10:17 10:17 BP 130 / 47; Pulse 48bpm; Resp 17bpm; Spontaneous; Pulse Ox 98% RA; kc6 kc6
--- NOTE | 2023-01-09 10:53 | EDPHYS ---
Physician Documentation [facility] Name: Kandace Worley Age: 63 yrs Sex: Female : 1960 Arrival Date: 01/09/2023 Time: 08:54 Bed 17 Private MD: ED Physician Gregorio Elizondo HPI: 01/09 09:20 This 63 yrs old Female presents to ER via Wheelchair with complaints of Facial pain. sp3 09:20 63-year-old female with history of diabetes, hypertension presents ED with left-sided sp3 facial droop and mild headache. Patient called her PCP who advised her to come to the ED for evaluation of possible stroke. Symptoms started approximately 2 days ago. She denies any other symptoms including change in vision, change in hearing, right-sided facial droop, forehead droop, other extremity symptoms including weakness or numbness or tingling, chest pain, neck pain, shortness of breath, abdominal pain, nausea, vomiting, diarrhea, syncope, near syncope, fever, URI symptoms, known sick contacts, travel history, or any other signs or symptoms on ROS at this time.. Historical: - Allergies: 09:16 Valium; kc6 - PMHx: 09:16 Diabetes mellitus; Hypertensive disorder; Anxiety; Depressive disorder; scoliosis; kc6 Arthritis; psoriasis; fatty liver; - PSHx: 09:16 hysterectomy; Tonsillectomy; TUNDE knee replacements; kc6 - Immunization history:: Client reports receiving the 2nd dose of the Covid vaccine, Flu vaccine is up to date. - Social history:: Smoking status: Patient reports the use of cigarette tobacco products, denies chronic smoking, but will smoke occasionally. ROS: 09:21 Constitutional: Negative for fever, chills, and weight loss, Eyes: Negative for injury, sp3 pain, redness, and discharge, ENT: Negative for injury, pain, and discharge, Neck: Negative for injury, pain, and swelling, Cardiovascular: Negative for chest pain, palpitations, and edema, Respiratory: Negative for shortness of breath, cough, wheezing, and pleuritic chest pain, Abdomen/GI: Negative for abdominal pain, nausea, vomiting, diarrhea, and constipation, Back: Negative for injury and pain, MS/Extremity: Negative for injury and deformity, Psych: Negative for depression, anxiety, suicide ideation, homicidal ideation, and hallucinations, Allergy/Immunology: Negative for hives, rash, and allergies, Endocrine: Negative for neck swelling, polydipsia, polyuria, polyphagia, and marked weight changes, Hematologic/Lymphatic: Negative for swollen nodes, abnormal bleeding, and unusual bruising. 09:21 All other systems are negative. Exam: 09:21 Constitutional: This is a well developed, well nourished patient who is awake, alert, sp3 and in no acute distress. Eyes: Pupils equal round and reactive to light, extra-ocular motions intact. Lids and lashes normal. Conjunctiva and sclera are non-icteric and not injected. Cornea within normal limits. Periorbital areas with no swelling, redness, or edema. ENT: Nares patent. No nasal discharge, no septal abnormalities noted. External auditory canals are clear. Oropharynx with no redness, swelling, or masses, exudates, or evidence of obstruction, uvula midline. Mucous membranes moist. Neck: Trachea midline, no thyromegaly or masses palpated, and no cervical lymphadenopathy. Supple, full range of motion without nuchal rigidity, or vertebral point tenderness. No Meningismus. Chest/axilla: Normal chest wall appearance and motion. Nontender with no deformity. No lesions are appreciated. Cardiovascular: Regular rate and rhythm with a normal S1 and S2. No gallops, murmurs, or rubs. Normal PMI, no JVD. No pulse deficits. Respiratory: Lungs have equal breath sounds bilaterally, clear to auscultation and percussion. No rales, rhonchi or wheezes noted. No increased work of breathing, no retractions or nasal flaring. Abdomen/GI: Soft, non-tender, with normal bowel sounds. No distension or tympany. No guarding or rebound. No evidence of tenderness throughout. Back: No spinal tenderness. No costovertebral tenderness. Full range of motion. Skin: Warm, dry with normal turgor. Normal color with no rashes, no lesions, and no evidence of cellulitis. MS/ Extremity: Pulses equal, no cyanosis. Neurovascular intact. Full, normal range of motion. Psych: Awake, alert, with orientation to person, place and time. Behavior, mood, and affect are within normal limits. 09:21 Neuro: 63-year-old female with diabetes and hypertension now with left-sided facial droop persistent for greater than 2 days. Clinically patient has had a CVA. Will obtain CT scan of the head, laboratory values and admit patient for neurological evaluation and inpatient MRI. I am not highly suspicious for hemorrhagic stroke, midline shift, sepsis, shock or any other critical findings.. 09:33 ECG was reviewed by the Attending Physician. EKG demonstrates sinus bradycardia 51 bpm sp3 with normal intervals, normal QRS, mildly leftward axis, normal ST/T-segment's without evidence of acute ischemia. Vital Signs: 09:14 BP 155 / 77; Pulse 62; Resp 19 S; Temp 98.1(O); Pulse Ox 95% on R/A; Weight 106.59 kg kc6 (R); Height 5 ft. 3 in. (R); 10:17 BP 130 / 60; Pulse 48; Resp 17 S; Pulse Ox 98% on R/A; kc6 13:15 BP 139 / 60; Pulse 48; Resp 17 S; Pulse Ox 98% on R/A; kc6 09:14 Body Mass Index 41.63 (106.59 kg, 160.02 cm) kc6 MDM: 09:12 Patient medically screened. sp3 10:50 Data reviewed: vital signs, nurses notes, EMS record, lab test result(s), EKG, sp3 radiologic studies. ED course: 63-year-old female with new left-sided facial droop with forehead sparing. Symptoms been going on for greater than 3 days likely represents clinical CVA. CT scan of the head is negative. Laboratory values are also normal. Patient has no progressive symptoms. Will admit with neurological consultation and aspirin has been given.. 01/09 09:13 Order name: Basic Metabolic Panel; Complete Time: 10:34 sp3 01/09 09:13 Order name: CBC with Diff; Complete Time: 10:34 sp3 01/09 09:13 Order name: Hepatic Function; Complete Time: 10:34 sp3 01/09 09:13 Order name: High Sensitivity Troponin; Complete Time: 10:34 sp3 01/09 09:13 Order name: Magnesium; Complete Time: 10:34 sp3 01/09 09:13 Order name: Protime (+inr); Complete Time: 10:34 sp3 01/09 09:13 Order name: Ptt, Activated; Complete Time: 10:34 sp3 01/09 13:26 Order name: Magnesium EDMS 01/09 13:26 Order name: Phosphorus EDMS 01/09 13:26 Order name: T4 Free EDMS 01/09 13:26 Order name: Thyroid Stimulating Hormone EDMS 01/09 13:26 Order name: Urinalysis w/ reflexes EDMS 01/09 13:26 Order name: Basic Metabolic Panel EDMS 01/09 13:26 Order name: Basic Metabolic Panel EDMS 01/09 13:26 Order name: CBC with Automated Diff EDMS 01/09 13:26 Order name: CBC with Automated Diff EDMS 01/09 13:26 Order name: Lipid Profile EDMS 01/09 13:26 Order name: Lipid Profile EDMS 01/09 09:13 Order name: Stroke CXR 1 View; Complete Time: 12:28 sp3 01/09 09:13 Order name: CT Head Brain wo Cont; Complete Time: 12:28 sp3 01/09 13:27 Order name: Brain Wo Cont EDMS 01/09 09:13 Order name: EKG; Complete Time: 09:14 sp3 / 12:45 Order name: 60g Consistent Carbohydrate (ADA 1800/2000) EDMS 01/09 13:26 Order name: CONS Physician Consult EDMS 01/09 09:13 Order name: Accucheck; Complete Time: 09:39 sp3 01/09 09:13 Order name: Cardiac monitoring; Complete Time: 09:22 sp3 01/09 09:13 Order name: EKG - Nurse/Tech; Complete Time: 09:22 sp3 01/09 09:13 Order name: IV Saline Lock; Complete Time: 09:39 sp3 01/09 09:13 Order name: Labs collected and sent; Complete Time: 09:39 sp3 01/09 09:13 Order name: NPO; Complete Time: 09:22 sp3 01/09 09:13 Order name: O2 Per Protocol; Complete Time: 09:22 sp3 01/09 09:13 Order name: O2 Sat Monitoring; Complete Time: 09:22 sp3 01/09 09:13 Order name: Stroke Swallow Screen; Complete Time: 09:22 sp3 Administered Medications: 10:59 Drug: Aspirin PO Chewable Tablet 324 mg Route: PO; kc6 13:15 Follow up: Response: No adverse reaction kc6 Disposition Summary: 01/09/23 10:52 Hospitalization Ordered Hospitalization Status: Observation sp3 Provider: Mariano Davenport sp3 Location: Telemetry/MedSurg (observation) sp3 Condition: Stable sp3 Problem: new sp3 Symptoms: have worsened sp3 Bed/Room Type: Standard sp3 Room Assignment: 413(01/09/23 13:06) bd Diagnosis - New left-sided facial droop, CVA sp3 Forms: - Medication Reconciliation Form sp3 - SBAR form sp3 Signatures: Dispatcher [employer] EDShelly Grant Setul, MD MD sp3 Elsy Waters RN RN kc6 Corrections: (The following items were deleted from the chart) 13:06 10:52 sp3 bd
--- NOTE | 2023-01-09 10:58 | RAD REPORT ---
EXAM DESCRIPTION: RADChest Single View01/09/2023 9:30 am CLINICAL HISTORY: cva COMPARISON: Chest Pa And Lat (2 Views) dated 10/03/2021 TECHNIQUE: Portable AP view of the chest. FINDINGS: New patchy left basilar airspace opacity. No pneumothorax or effusion. The cardiomediastin al contours are unremarkable. IMPRESSION: New patchy left basilar airspace opacity may reflect atelectasis or pneumonia.
[2023-01-09] MEDS ORDERED: ASPIRIN 81 MG CHEWABLE TABLET ONE (11:06)
[2023-01-09] MEDS ORDERED: HYDROCODONE/APAP 5/325 MG TAB PO PRN (12:41)
[2023-01-09] MEDS ORDERED: ACETAMINOPHEN 325 MG TABLET PO PRN (12:41)
[2023-01-09] MEDS ORDERED: ONDANSETRON 4 MG/2 ML VIAL IV PRN (13:22)
[2023-01-09 14:10] VITALS: BMI 41.6
--- NOTE | 2023-01-09 14:18 | P.HP ---
Certification for Inpatient Patient admitted to: Observation With expected LOS: <2 Midnights Patient will require the following post-hospital care: None Practitioner: I am a practitioner with admitting privileges, knowledge of patient current condition, hospital course, and medical plan of care. Services: Services provided to patient in accordance with Admission requirements found in Title 42 Section 412.3 of the Code of Federal Regulations Patient History Date of Service: 01/09/23 Reason for admission: Left facial droop History of Present Illness: Patient is a 63-year-old female with a past medical history significant for DM 2, hypertension, anxiety disorder, depression, osteoarthritis who presents with complaint of left facial droop and headache onset this morning. Patient reported that she has been having headache, blurry vision, poor gait that been ongoing intermittently for the past 1 week. Patient reported that he followed up with her PCP yesterday who informed her to go to the ER anytime she experiences similar symptoms. Patient reported that she woke up this morning and started having left facial droop and headache. Patient reported associated signs and symptoms of nausea, dizziness and generalized malaise. Patient denies any other signs and symptoms. Symptoms are aggravated or relieved by nothing. Patient decided to present to the hospital for medical evaluation. Allergies adhesive tape Allergy (Verified 01/04/22 12:17) blisters diazepam [From Valium] Allergy (Verified 01/04/22 12:17) Itching Home Medications: Meloxicam 1 tab PO DAILY 01/04/22 Metformin ER [Glucophage ER*] 1 tab PO BID 01/04/22 Montelukast [Singulair*] 1 tab PO DAILY 01/04/22 Rosuvastatin Calcium 1 tab PO DAILY 01/04/22 Buspirone HCl [Buspar*] 5 mg PO TID 01/09/23 Duloxetine HCl 60 mg PO DAILY 01/09/23 Losartan Potassium 50 mg PO DAILY 01/09/23 Ropinirole HCl 3 mg PO BEDTIME 01/09/23 - Past Medical/Surgical History Has patient received pneumonia vaccine in the past: Yes -: Anxiety disorder -: Depression -: Hypertension -: RLS -: Osteoarthritis -: Hyperlipidemia -: DM2 -: Hysterectomy -: Tonsillectomy -: Bilateral knee replacement - Family History Family History: Reviewed- Non-Contributory - Social History Smoking Status: Former smoker Alcohol use: No CD- Drugs: No Caffeine use: Yes Place of Residence: Home Review of Systems General: Malaise Eyes: Other (Blurry vision) ENT: Unremarkable Respiratory: Unremarkable Cardiovascular: Unremarkable Gastrointestinal: Nausea Genitourinary: Unremarkable Musculoskeletal: Unremarkable Integumentary: Unremarkable Neurological: Other (Left facial droop, headache, blurry vision, poor gait, dizziness) Lymphatics: Unremarkable Physical Examination - Vital Signs Temperature: 97.0 F Blood Pressure: 139/60 Pulse: 48 Respirations: 17 Pulse Ox (%): 95 - Physical Exam General: Alert, In no apparent distress, Oriented x3, Cooperative HEENT: Atraumatic, PERRLA, Mucous membr. moist/pink, EOMI, Sclerae nonicteric Neck: Supple, 2+ carotid pulse no bruit, No LAD, Without JVD or thyroid abnormality Respiratory: Clear to auscultation bilaterally, Normal air movement Cardiovascular: No edema, Regular rate/rhythm, Normal S1 S2 Capillary refill: <2 Seconds Gastrointestinal: Normal bowel sounds, Non-distended, No tenderness Musculoskeletal: No clubbing, No swelling, No tenderness Integumentary: No rashes, No significant lesion Neurological: Normal speech, Normal strength at 5/5 x4 extr, Normal tone, Normal affect Lymphatics: No axilla or inguinal lymphadenopathy - Studies Laboratory Data (last 24 hrs) 01/09/23 01/09/23 01/09/23 09:37 09:37 09:37 WBC 6.60 Hgb 13.5 Hct 42.4 Plt Count 221 PT 12.7 H INR 1.15 APTT 44.9 H Sodium 140 Potassium 3.5 BUN 17 Creatinine 0.58 Glucose 122 H Magnesium 1.9 Total Bilirubin 0.7 AST 26 ALT 36 Alkaline Phosphatase 74 Assessment and Plan - Plan --TIA. MRI brain does not indicate any acute intracranial abnormality. Neurology consulted. PT eval and treat. Continue aspirin and statin. --DM2. BS monitoring with sliding scale insulin. -- Hyperlipidemia. Continue statin. -- RLS. Continue ropinirole. --Hypertension. Poorly controlled. Continue home medications and hydralazine as needed. --Osteoarthritis. We will manage pain with current pain medication regimen. --Allergic rhinitis. Continue home medication. --Anxiety disorder\depression. Continue home medications. --Headache. Tylenol as needed. --Class III obesity. Likely secondary to excess calories intake. Patient counseled on weight reduction, diet and excise therapy. -- DVT prophylaxis with Lovenox subQ Discharge Plan: Home Plan to discharge in: 48 Hours - Advance Directives Does patient have a Living Will: No Does patient have a Durable POA for Healthcare: No - Code Status/Comfort Care Code Status Assessed: Yes Physician Review: Patient Assessed, Agree with Above Assessment and Plan Critical Care: No
[2023-01-09] MEDS ORDERED: GLUCAGON 1 MG/VIAL IM PRN (14:20)
[2023-01-09] MEDS ORDERED: D50W 25 GM/50 ML SYRINGE IV PRN (14:20)
[2023-01-09] MEDS ORDERED: D10W 125 ML IV PRN (14:24)
--- NOTE | 2023-01-09 15:03 | RAD REPORT ---
EXAM DESCRIPTION: MRI - Brain Wo Cont - 01/09/2023 2:38 pm CLINICAL HISTORY: R O CVA COMPARISON: Head Brain Wo Cont dated 01/09/2023 TECHNIQUE: Sagittal T1-weighted images were obtained along with PD/heavily T2-weighted and T2-FLAIR images. Axial DWI and ADC mapping sequences were also obtained along with coronal heavily T2-weighted images were obtained. FINDINGS: No intracranial hemorrhage, mass or acute infarction. There is no edema or shift of midlin e structures. No extra-axial fluid collections. Signal voids are seen as a normal finding in the christopher r intracranial vessels. A few scattered T2/FLAIR hyperintense signal foci within the subcortical and deep white matter noted. Mastoid air cells and paranasal sinuses are clear. IMPRESSION: No acute intracranial abnormality. Specifically, no its of acute infarct. Minimal chroni c small vessel ischemic changes.
[2023-01-09] MEDS: ENOXAPARIN 40 MG/0.4 ML SQ SCH (15:21)
[2023-01-09 16:30] LABS: Magnesium 2.1 mg/dL (1.6-2.4); Phosphorus 3.4 mg/dL (2.5-4.9); Thyroid Stimulating Hormone 1.86 uIU/mL (0.358-3.740)
[2023-01-09] MEDS: INSULIN -REGULAR HUMAN 50 UNIT/0.5 ML ML SQ SCH ×2 (16:30→20:30)
[2023-01-09 19:09] LABS: Urine Bacteria <20 /HPF (<20); Urine Bilirubin NEGATIVE (Negative); Urine Blood Negative (Negative); Urine Clarity Clear (Clear); Urine Color Light-Yellow (Yellow); Urine Glucose NEGATIVE (Negative); Urine Mucus Slight /HPF (None Seen); Urine Protein NEGATIVE (Negative); Urine RBC <5 /HPF (None Seen); Urine Urobilinogen Normal (Normal); Urine pH 5.5 (5.0-7.0)
[2023-01-09] MEDS ORDERED: HYDRALAZINE HCL 20 MG/ML VIAL IV PRN (19:27)
[2023-01-09] MEDS: BUSPIRONE HCL 5 MG TABLET PO SCH (20:25)
[2023-01-09] MEDS ORDERED: ROPINIROLE HCL 1 MG TAB PO SCH (21:00)
[2023-01-10 05:30] VITALS: O2SAT 94
[2023-01-10 06:41] LABS: Absolute Lymphocytes (CBC) 1.8 K/uL (0.7-4.9); Hematocrit 40.4 % (36.0-45.0); MCV 85.1 fL (80-100); MPV 8.4 fL (7.6-11.3); Platelets 215 thou/uL (152-406); RBC Red Blood Cell Count 4.76 M/uL (3.86-4.86)
[2023-01-10 07:01] LABS: Potassium 3.3 mEq/L (3.5-5.1)
[2023-01-10] MEDS: INSULIN -REGULAR HUMAN 50 UNIT/0.5 ML ML SQ SCH ×3 (07:30→16:02)
[2023-01-10] MEDS ORDERED: DULOXETINE 30 MG CAP PO SCH (09:00)
[2023-01-10] MEDS ORDERED: LOSARTAN POTASSIUM 50 MG TABLET PO SCH (09:00)
[2023-01-10] MEDS ORDERED: ROSUVASTATIN 10 MG TAB PO SCH (09:00)
[2023-01-10] MEDS ORDERED: POTASSIUM CL SA 10 MEQ TAB PO ONE (09:00)
[2023-01-10] MEDS ORDERED: ASPIRIN 81 MG CHEWABLE TABLET PO SCH (09:00)
[2023-01-10] MEDS ORDERED: MONTELUKAST 10 MG TAB PO SCH (09:00)
[2023-01-10] MEDS: ENOXAPARIN 40 MG/0.4 ML SQ SCH (09:00)
[2023-01-10] MEDS: BUSPIRONE HCL 5 MG TABLET PO SCH ×2 (09:00→13:41)
[2023-01-10 15:58] VITALS: BP 170/73; TEMP 97.3
--- NOTE | 2023-01-10 17:18 | P.DS ---
Admission Date: 01/09/23 Discharge Date: 01/10/23 Disposition: ROUTINE DISCHARGE Discharge Condition: FAIR Reason for Admission: Left facial droop Brief History of Present Illness: Patient is a 63-year-old female with a past medical history significant for DM 2, hypertension, anxiety disorder, depression, osteoarthritis who presented with complaint of left facial droop and headache. Patient reported that she has been having headache, blurry vision, poor gait that been ongoing intermittently for the past 1 week. Patient reported that he followed up with her PCP yesterday who informed her to go to the ER anytime she experiences similar symptoms. Patient reported that she woke up this morning and started having left facial droop and headache. Patient reported associated signs and symptoms of nausea, dizziness and generalized malaise. CT head done in the ED was unremarkable and showed no acute disease. Patient was hospitalized for further management. Hospital Course: Diagnosis Left facial paralysis Intermittent gait disturbance Hypertension. Diabetes mellitus type 2 Restless leg syndrome. MRI of the brain did not show any acute disease. Patient was evaluated by physical therapy and noted to be independent and discharged from PT services. Case discussed with neurology who suspects Barreto's palsy and recommended prednisone and valacyclovir. Patient is therefore discharged with prednisone and valacyclovir. Recommended follow up with neurology for evaluation for multiple sclerosis. Vital Signs/Physical Exam: Temp Pulse Resp BP Pulse Ox 97.3 F 59 18 170/73 H 97 01/10/23 15:57 01/10/23 15:57 01/10/23 15:57 01/10/23 15:57 01/10/23 15:57 General: Alert, In no apparent distress, Oriented x3 HEENT: Mucous membr. moist/pink Neck: Supple, JVD not distended Respiratory: Clear to auscultation bilaterally, Normal air movement Cardiovascular: No edema, Regular rate/rhythm, Normal S1 S2 Gastrointestinal: Normal bowel sounds, Soft and benign, Non-distended Musculoskeletal: No swelling Integumentary: No rashes Neurological: Normal strength at 5/5 x4 extr Laboratory Data at Discharge: WBC 6.60 thou/uL (4.3-10.9) 01/10/23 05:25 Hgb 13.1 g/dL (12.0-15.0) 01/10/23 05:25 Hct 40.4 % (36.0-45.0) 01/10/23 05:25 Plt Count 215 thou/uL (152-406) 01/10/23 05:25 PT 12.7 SECONDS (9.5-12.5) H 01/09/23 09:37 INR 1.15 01/09/23 09:37 APTT 44.9 SECONDS (24.3-36.9) H 01/09/23 09:37 Sodium 142 mEq/L (136-145) 01/10/23 05:25 Potassium 3.3 mEq/L (3.5-5.1) L 01/10/23 05:25 BUN 11 mg/dL (7-18) 01/10/23 05:25 Creatinine 0.43 mg/dL (0.55-1.02) L 01/10/23 05:25 Glucose 88 mg/dL (74-106) 01/10/23 05:25 Phosphorus 3.4 mg/dL (2.5-4.9) 01/09/23 15:30 Magnesium 2.1 mg/dL (1.6-2.4) 01/09/23 15:30 Total Bilirubin 0.7 mg/dL (0.2-1.0) 01/09/23 09:37 AST 26 U/L (15-37) 01/09/23 09:37 ALT 36 U/L (13-56) 01/09/23 09:37 Alkaline Phosphatase 74 U/L (45-117) 01/09/23 09:37 Triglycerides 143 mg/dL (<150) 01/10/23 05:25 Cholesterol 115 mg/dL (<200) 01/10/23 05:25 HDL Cholesterol 63 mg/dL (40-60) H 01/10/23 05:25 Cholesterol/HDL Ratio 1.83 01/10/23 05:25 Home Medications: Meloxicam 1 tab PO DAILY 01/04/22 Metformin ER [Glucophage ER*] 1 tab PO BID 01/04/22 Montelukast [Singulair*] 1 tab PO DAILY 01/04/22 Rosuvastatin Calcium 1 tab PO DAILY 01/04/22 Buspirone HCl [Buspar*] 5 mg PO TID 01/09/23 Duloxetine HCl 60 mg PO DAILY 01/09/23 Losartan Potassium 50 mg PO DAILY 01/09/23 Ropinirole HCl 3 mg PO BEDTIME 01/09/23 Aspirin Chewable [Aspirin Chewable*] 81 mg PO DAILY #30 tab.chew 01/10/23 Valacyclovir HCl [Valacyclovir] 1,000 mg PO TID #21 tab 01/10/23 predniSONE [Deltasone] 60 mg PO DAILY #21 tab 01/10/23 New Medications: Aspirin Chewable [Aspirin Chewable*] 81 mg PO DAILY #30 tab.chew predniSONE [Deltasone] 60 mg PO DAILY #21 tab Valacyclovir HCl [Valacyclovir] 1,000 mg PO TID #21 tab Diet: ADA Activity: Fall precautions Followup: Moreno Lindsay MD [ASSOCIATE-ACTIVE - CAN ADMIT] - (Within 2 weeks) Matoe Meyer MD [Primary Care Provider] - 1-2 Weeks Time spent managing pt's care (in minutes): 32
--- NOTE | 2023-01-13 15:39 | EKG ---
Test Date: 2023-01-09 Test Time: 09:22:41 Temporary Data Entry Clerk: TIP MEASUREMENT RESULTS: Intervals: Rate: 51 NE: 150 QRSD: 86 QT: 454 QTc: 418 [place]: P: 74 NE: 150 QRS: -34 T: 56 INTERPRETIVE STATEMENTS: Sinus bradycardia Left axis deviation Abnormal ECG Compared to ECG 01/04/2022 12:01:39 Left-axis deviation now present Electronically Signed On 01-13-23 15:34:35 CDT by Nasim Zapien
== END 2023-01-10 17:55 | disposition home or self-care (01) | DRG 74 ==
LOC: ER 08:54 → 4TH 12:40
PROVIDERS: ADMIT Internal Medicine; ATTEND Internal Medicine
DX: G51.0 Bell's palsy (principal); Z68.41 Body mass index [BMI] 40.0-44.9, adult; E11.9 Type 2 diabetes mellitus without complications; I10 Essential (primary) hypertension; E78.5 Hyperlipidemia, unspecified; J30.9 Allergic rhinitis, unspecified; F41.9 Anxiety disorder, unspecified; F32.A Depression, unspecified; H53.8 Other visual disturbances; E66.09 Other obesity due to excess calories; G25.81 Restless legs syndrome; M19.90 Unspecified osteoarthritis, unspecified site; F17.210 Nicotine dependence, cigarettes, uncomplicated; R26.9 Unspecified abnormalities of gait and mobility; R51.9 Headache, unspecified; Z71.3 Dietary counseling and surveillance; Z88.8 Allergy status to other drugs, medicaments and biological substances; Z79.82 Long term (current) use of aspirin; Z79.52 Long term (current) use of systemic steroids; Z79.84 Long term (current) use of oral hypoglycemic drugs; Z79.899 Other long term (current) drug therapy; Z90.710 Acquired absence of both cervix and uterus; Z96.653 Presence of artificial knee joint, bilateral; Z91.048 Other nonmedicinal substance allergy status
CPT/HCPCS: 36415; 70450; 70551; 71045; 80048; 80061; 80076; 81001; 82947; 83036; 83735; 84100; 84439; 84443; 84484; 85025; 85610; 85730; 93005; 97110; 97116; 97161; 99285; J1650

== ENCOUNTER 2023-01-29 10:55 | Emergency (ER) | payer OTHER ==
--- OUTSIDE RECORDS SUMMARY | 2023-01-29 10:58 | XMS REPORT | Continuity of Care Document ---
:1960 Author Organization [facility] t Address [address] [facility] [facility]. [address] [place] [address] Care Team Providers Name Role Phone Keanu Ponce Attending Clinician ERASMO UMAÑA Attending Clinician Unavailable Payers Payer Name Policy Type Policy Number Effective Date Expiration Date S tommy [employer] MEDICARE ADV [id number] 2019 00:00:00 Problems Condition Condition Condition Status Onset Resolution Last Treating Co mments Source Name Details Category Date Date Treatment Clinician Date [id number] Neck pain Problem Comm on [facility] [id number] Nontraumat Problem C ommon [id number] ic [facility] incomplete - [facility] tear of right [facility] rotator [facility] cuff Center [id number] Nontraumat Problem C ommon [id number] ic Spirit complete - [facility] tear of right [facility] rotator [facility] cuff Center [id number] Pain, Problem Commo n [id number] joint, [facility] shoulder, - [facility] right [facility] [id number] 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[facility] vicular [facility] [id number] Status Problem Common post [facility] shoulder - [facility] surgery [facility] Allergies, Adverse Reactions, Alerts Allergy Allergy Status Severity Reaction(s) Onset Inactive Treating Comm ents Source Name Type Date Date Clinician DIAZEPAM DRUG Active High ITCHING [facility] INGREDI 12-06 ity of 00:00: [place] [facility] MEPERIDI DRUG Active ITCHING 2017-0 Univers NE INGREDI 4-12 ity of 00:00: [address] Branch NO KNOWN Drug Active Univers ALLERGIE Class ity of S [facility] diazepam diazepam Active Unknown Commo n [facility] meperidi meperidi Active Unknown Commo n ne ne [facility] Social History Social Habit Start Date Stop Date Quantity Comments Source Sex Assigned At Com [facility] History of Tobacco Use Co mmon [facility] Smoking Status Start Date Stop Date Source Former Smoker 2022-07-09 00:00:00 2022-07-09 00:00:00 Common S [facility] Medications Ordered Filled Start Stop Current Ordering Indication Dosage Frequency Signature Comments Components Source Medication Medication Date Date Medication? Clinician (SIG) Name Name Lidocaine Lidocaine 0 No 10mg Com 07-04 Spirit 00:00: - [facility] Kenalog Kenalog 0 No 40mg Common (Triamcinol (Triamcinol 2-01 S pirit one) one) 00:00: - [facility] Lidocaine Lidocaine 2022-0 No 10mg Com 07-04 Spirit 00:00: - [facility] Kenalog Kenalog 2022-0 No 40mg Common (Triamcinol (Triamcinol 2-01 S pirit one) one) 00:00: - [facility] Mobic 7.5 Mobic 7.5 2021-06- No 1{table QD Mobic 7.5 MG MG 004-04 t} MG 00:00: 00:00 00 :00 Mobic 7.5 Mobic 7.5 2021-06- No 1{table QD Mobic 7.5 MG MG 0-04-04 t} MG 00:00: 00:00 00 :00 Mobic 7.5 Mobic 7.5 2021-06- No 1{table QD Mobic 7.5 MG MG 004-04 t} MG 00:00: 00:00 00 :00 HYDROcodone HYDROcodone No 1{table HYDROcodon -Acetaminop -Acetaminop [...] Potassium Potassium Potassium Levocetiriz Levocetiriz No Levocetiri sergey Limchlo Dihydrochlo Dihydrochl ride ride oride Meloxicam Meloxicam [...] thiazide Othiazide Levocetiriz Levocetiriz No Levocetiri ine sergey Limchlo Carinachlo Dihydrochl ride ride oride Montelukast Montelukast No [...] Comments Source height 2022-07-04 13:00:00 63 [in_i] [facility] weight 2022-07-04 13:00:00 244 [lb_av] [facility] temperature 2022-07-04 13:00:00 97.6 [degF] [facility] bmi 2022-07-04 13:00:00 43.22 kg/m2 [facility] blood pressure 2022-07-04 13:00:00 134 mm[Hg] [facility] - systolic [facility] blood pressure 2022-07-04 13:00:00 88 mm[Hg] Common [facility] - diastolic [facility] height 2022-03-26 14:30:00 63 [in_i] [facility] weight 2022-03-26 14:30:00 242 [lb_av] [facility] temperature 2022-03-26 14:30:00 97.1 [degF] [facility] bmi 2022-03-26 14:30:00 42.86 kg/m2 [facility] blood pressure 2022-03-26 14:30:00 130 mm[Hg] [facility] - systolic [facility] blood pressure 2022-03-26 14:30:00 80 mm[Hg] Common [facility] - diastolic [facility] height 2022-02-01 11:00:00 63 [in_i] Common [facility] weight 2022-02-01 11:00:00 242 [lb_av] Common [facility] temperature 2022-02-01 11:00:00 97.2 [degF] Common S [facility] bmi 2022-02-01 11:00:00 42.86 kg/m2 [facility] S [facility] blood pressure 2022-02-01 11:00:00 136 mm[Hg] Common [facility] - systolic [facility] blood pressure 2022-02-01 11:00:00 80 mm[Hg] Common [facility] - diastolic [facility] Procedures This patient has no known procedures. Encounters Start End Encounter Admission Attending Care Care Encounter Source Date/Time Date/Time Type Type Clinicians Facility Department ID 2022-07-04 Outpatient STLMLC ST[facility] [id number] Common 14:33:02 [facility] 2022-02-01 Outpatient STLMLC [facility] [id number] Common 10:50:03 [facility] 2022-01-01 Outpatient STLMLC STLC [id number] Common 17:02:01 [facility] 2021-11-23 Outpatient STLMLC STLC [id number] Common 10:51:04 [facility] 2022-08-15 2022-08-15 Ambulatory [facility]IE MNA [id number] Memoria 18:30:00 18:30:00 Pre-Reg Neurology 00 l Efrain Mason 2022-08-15 2022-08-15 Ambulatory [facility]IE MNA [id number] Memoria 18:30:00 18:30:00 Pre-Reg Neurology 00 l Efrain Cuevas 2022-08-15 2022-08-15 Outpatient MHIE MHIE [id number] Memoria 13:30:00 13:30:00 00 zohreh Cuevas 2022-08-15 2022-08-15 [id number] 13:30:00 13:30:00 Keanunetta Cagle 2022-07-05 2022-07-05 (TEL) STLMLC STLMLC [id number] Co mmon 00:00:00 00:00:00 [facility] 2022-07-04 2022-07-04 OFFICE STLMLC STLMLC [id number] Co mmon 00:00:00 00:00:00 VISIT [facility] LEVEL 3 [facility] 2022-03-26 2022-03-26 NON-BILLAB STLMLC STLMLC [id number] Common 00:00:00 00:00:00 LE VISIT [facility] 2022-03-05 2022-03-05 (TEL) STLMLC STLMLC [id number] Co mmon 00:00:00 00:00:00 [facility] 2022-02-01 2022-02-01 NON-BILLAB STLMLC STLMLC [id number] Common 00:00:00 00:00:00 LE VISIT [facility] 2019-12-07 2019-12-07 Outpatient Earnest UMAÑA [facility] [id number] Univers 13:30:00 13:30:00 ERASMO monteiro of [facility] Results This patient has no known results.
[2023-01-29 11:36] LABS: Absolute Lymphocytes (CBC) 1.8 K/uL (0.7-4.9); Hematocrit 40.9 % (36.0-45.0); Lymphocytes % 24.5 % (15.3-44.8); MCV 85.9 fL (80-100); MPV 7.5 fL (7.6-11.3); Platelets 227 thou/uL (152-406); RBC Red Blood Cell Count 4.76 M/uL (3.86-4.86)
[2023-01-29 11:42] LABS: Protime INR 1.14
--- NOTE | 2023-01-29 11:50 | RAD REPORT ---
EXAM DESCRIPTION: Kwame Single View01/29/2023 11:36 am CLINICAL HISTORY: Palpitation COMPARISON: January 09, 2023 FINDINGS: The lungs appear clear of acute infiltrate. The heart is normal size IMPRESSION: No acute abnormalities displayed
[2023-01-29 11:54] LABS: Magnesium 1.9 mg/dL (1.6-2.4); Potassium 3.8 mEq/L (3.5-5.1); Troponin High Sensitivity 5.7 pg/mL (<58.9)
--- NOTE | 2023-01-29 11:54 | RAD REPORT ---
EXAM DESCRIPTION: CT - Head Brain Wo Cont - 01/29/2023 11:40 am CLINICAL HISTORY: Difficulty speaking COMPARISON: January 09, 2023 TECHNIQUE: Computed axial tomography of the head was obtained. IV contrast was not requested. All CT scans are performed using dose optimization technique as appropriate and may include automated exposure control or mA/KV adjustment according to patient size. FINDINGS: An intracranial bleed is not seen The ventricles are normal in caliber No extra-axial fluid collection is noted. No significant hypodensity within the brain noted Fluid within the sinuses/ mastoids is not seen. IMPRESSION: No acute intracranial abnormality is seen If patient's symptoms persist MRI of the brain would be recommended
[2023-01-29 12:09] LABS: Calcium Oxalate Crystals- Ur Few /HPF (None Seen); Urine Bacteria <20 /HPF (<20); Urine Bilirubin NEGATIVE (Negative); Urine Blood Negative (Negative); Urine Clarity Extremely Turbid (Clear); Urine Color Yellow (Yellow); Urine Glucose NEGATIVE (Negative); Urine Mucus 1+ /HPF (None Seen); Urine Protein 1+ (Negative); Urine Urobilinogen Normal (Normal); Urine pH 5.5 (5.0-7.0)
--- NOTE | 2023-01-29 12:29 | EDPHYS ---
Physician Documentation [facility] Name: Kandace Worley Age: 63 yrs Sex: Female : 1960 Arrival Date: 01/29/2023 Time: 10:55 Bed 8 Private MD: ED Physician Ricardo Boyce HPI: 01/29 11:10 This 63 yrs old Female presents to ER via Ambulatory with complaints of Slurred Speech. ms3 11:10 63-year-old female with past medical history anxiety, arthritis, depression, diabetes, ms3 hepatic steatosis presents for 2 days of eye pain, palpitations, throat pain and "head feels fuzzy". Patient denies pain or symptoms at this time. Patient denies alleviating or inciting factors.. Historical: - Allergies: 11: Valium; iw - PMHx: 11: Anxiety; Arthritis; depressive disorder; diabetes mellitus; fatty liver; Hypertensive iw disorder; psoriasis; scoliosis; - PSHx: 11:01 dhaval knee replacements; hysterectomy; Tonsillectomy; iw - Social history:: Smoking status: Patient reports the use of cigarette tobacco products, denies chronic smoking, but will smoke occasionally. ROS: 11:10 Constitutional: Negative for fever, and chills. Neck: Negative for injury, pain, and ms3 swelling, Cardiovascular: Negative for chest pain, and palpitations. Respiratory: Negative for shortness of breath, cough, wheezing, and pleuritic chest pain, Abdomen/GI: Negative for abdominal pain, nausea, vomiting, diarrhea, and constipation, MS/Extremity: Negative for injury and deformity, Skin: Negative for injury, rash, and discoloration. 11:10 Neuro: Positive for "Head feels funny". 11:10 All other systems are negative. Exam: 11:10 Constitutional: This is a well developed, well nourished patient who is awake, alert, ms3 and in no acute distress. Head/Face: Normocephalic, atraumatic. Neck: Trachea midline, no cervical lymphadenopathy. Supple, full range of motion without nuchal rigidity, or vertebral point tenderness. No Meningismus. Chest/axilla: Normal chest wall appearance and motion. Nontender with no deformity. Cardiovascular: Regular rate and rhythm with a normal S1 and S2. No gallops, murmurs, or rubs. Normal PMI, no JVD. No pulse deficits. Respiratory: Lungs have equal breath sounds bilaterally, clear to auscultation and percussion. No rales, rhonchi or wheezes noted. No increased work of breathing, no retractions or nasal flaring. Abdomen/GI: Soft, non-tender, with normal bowel sounds. No distension or tympany. No guarding or rebound. No evidence of tenderness throughout. Skin: Warm, dry with normal turgor. Normal color with no rashes, no lesions, and no evidence of cellulitis. MS/ Extremity: Pulses equal, no cyanosis. Neurovascular intact. Full, normal range of motion. Neuro: Awake and alert, GCS 15, oriented to person, place, time, and situation. Cranial nerves II-XII grossly intact. Motor strength 5/5 in all extremities. Sensory grossly intact. Cerebellar exam normal. Normal gait. 12:27 Eyes: Pupils: equal, round, and reactive to light and accomodation, Extraocular ms3 movements: no acute changes, Conjunctiva: normal, Corneas: are normal, Visual auguste: are intact, Intraocular pressure: left eye = 18mmHg. 13:52 ECG was reviewed by the Attending Physician. ms3 Vital Signs: 10:59 Pulse 62; Resp 16; Temp 98.4; Pulse Ox 96% ; Weight 106.59 kg; Height 5 ft. 3 in. ; iw 12:27 BP 131 / 63; Pulse 65; Pulse Ox 98% on R/A; ap3 10:59 Body Mass Index 41.63 (106.59 kg, 160.02 cm) iw NIH Stroke Scale Scores: 11:10 NIHSS Score: 0 ms3 MDM: 11:06 Patient medically screened. ms3 13:50 Data reviewed: vital signs, nurses notes, lab test result(s), EKG, radiologic studies, ms3 and as a result, I will discharge patient. Consideration of Admission/Observation Patient was admitted/placed on observation. Escalation of care including admission/observation considered. CT negative, NIH = 0. Independent interpretation of the following test(s) in the Emergency Department EKG: See my EKG interpretation above CT Scan: My interpretation is CT Head images were reviewed by me did not reveal ICH. Historians other than the Patient: Daughter/Son: Patient's daughter. Counseling: I had a detailed discussion with the patient and/or guardian regarding the historical points, exam findings, and any diagnostic results supporting the discharge/admit diagnosis, lab results, radiology results, the need for outpatient follow up, to return to the emergency department if symptoms worsen or persist or if there are any questions or concerns that arise at home. Special discussion: I discussed with the patient/guardian in detail that at this point there is no indication for admission to the hospital. It is understood, however, that if the symptoms persist or worsen the patient needs to return immediately for re-evaluation. ED course: Discussed labs, EKG, imaging with the patient. Patient to follow-up with Dr. Sanchez in 2 to 3 days. Patient understands and agrees with plan. All questions were answered. Return precautions discussed include worsening symptoms, or any other concerns. 01/29 11:09 Order name: Basic Metabolic Panel; Complete Time: 12:04 ms3 01/29 11:09 Order name: CBC with Diff; Complete Time: 12: ms3 01/29 11:09 Order name: High Sensitivity Troponin; Complete Time: 12: ms3 01/29 11:09 Order name: Magnesium; Complete Time: 12: ms3 01/29 11:09 Order name: Protime (+inr); Complete Time: 12:04 ms3 01/29 11:09 Order name: Ptt, Activated; Complete Time: 12: ms3 01/29 11:14 Order name: Urinalysis w/ reflexes; Complete Time: 12:14 ms3 01/29 11:09 Order name: CT Head Brain wo Cont; Complete Time: 12:04 ms3 01/29 11:10 Order name: CXR XRAY; Complete Time: 12:04 ms3 01/29 11:09 Order name: EKG; Complete Time: 11:11 ms3 01/29 11:09 Order name: Accucheck; Complete Time: 11: ms3 01/29 11:09 Order name: Cardiac monitoring; Complete Time: 12:18 ms3 01/29 11:09 Order name: EKG - Nurse/Tech; Complete Time: 11: ms3 01/29 11:09 Order name: IV Saline Lock; Complete Time: 11: ms3 01/29 11:09 Order name: Labs collected and sent; Complete Time: : ms3 01/29 11:09 Order name: NPO; Complete Time: 11:15 ms3 01/29 11:09 Order name: O2 Per Protocol; Complete Time: 11:15 ms3 01/29 11:09 Order name: O2 Sat Monitoring; Complete Time: 11:15 ms3 01/29 11:09 Order name: Stroke Swallow Screen; Complete Time: 12:29 ms3 EC:52 Rate is 50 beats/min. Rhythm is regular. QRS [place] is Normal. NV interval is normal. QRS ms3 interval is normal. QT interval is normal. Clinical impression: Sinus bradycardia. Interpreted by me. Reviewed by me. Administered Medications: No medications were administered Disposition Summary: 01/29/23 12:29 Discharge Ordered Location: Home ms3 Condition: Stable ms3 Diagnosis - Ocular pain, left eye ms3 - Palpitations ms3 - Pain in throat ms3 Followup: ms3 - With: Moreno Lindsay MD - When: 1 - 2 days - Reason: Recheck today's complaints Followup: ms3 - With: Jhony Kaur MD - When: 1 - 2 days - Reason: Recheck today's complaints Discharge Instructions: - Discharge Summary Sheet ms3 - Palpitations ms3 - Sore Throat ms3 Forms: - Medication Reconciliation Form ms3 - Thank You Letter ms3 - Antibiotic Education ms3 - Prescription Opioid Use ms3 - Patient Portal Instructions ms3 - Leadership Thank You Letter ms3 NIH Stroke Scale - NIH Stroke Score Date: 01/29/2023 Time: 11:10 Total Score = 0 10. Dysarthria (speech clarity - read or repeat words) - 0(Normal) 11. Extinction and Inattention (visual/tactile/auditory/spatial/personal) - 0(No abnormality) 1a. Level of Consciousness (LOC) - 0(Alert) 1b. Level of Consciousness (LOC) (Month \\T\\ Age) - 0(Both) 1c. LOC Commands (Open \\T\\ Closes Eyes/Swing Driver) - 0(Both) 2. Best Gaze (Lateral Gaze Paresis) - 0(Normal) 3. Visual Field Loss - 0(No visual loss) 4. Facial Palsy - 0(Normal) 5a. Left Arm: Motor (10-second hold) - 0(No drift) 5b. Right Arm: Motor (10-second hold) - 0(No drift) 6a. Left Leg: Motor (5-second hold - always test supine) - 0(No drift) 6b. Right Leg: Motor (5-second hold - always test supine) - 0(No drift) 7. Limb Ataxia (finger/nose \\T\\ heel/wells - test with eyes open) - 0(Absent) 8. Sensory Loss (pinprick arms/legs/face) - 0(Normal) 9. Best Language: Aphasia (description/naming/reading) - 0(No aphasia) Initials: ms3 Signatures: Dispatcher [employer] Anyi Teague, RN Charis Milligan RN RN ap3 Ricardo Boyce, DO ms3
--- NOTE | 2023-01-29 12:29 | ER ---
Nurse's Notes [facility] Name: Kandace Worley Age: 63 yrs Sex: Female : 1960 Arrival Date: 01/29/2023 Time: 10:55 Bed 8 Private MD: Diagnosis: Ocular pain, left eye;Palpitations;Pain in throat Presentation: 01/29 10:59 Chief complaint: Patient's son or daughter states: she called me about 45 minutes ago iw and just said help , she had a TIA 2 weeks ago and since then it affected her speech and her eye sight , pt has eye pain X 2 days, palpitations, head feels fuzzy. Coronavirus screen: At this time, the client does not indicate any symptoms associated with coronavirus-19. Ebola Screen: Patient negative for fever greater than or equal to 101.5 degrees Fahrenheit, and additional compatible Ebola Virus Disease symptoms Patient denies exposure to infectious person. Patient denies travel to an Ebola-affected area in the 21 days before illness onset. No symptoms or risks identified at this time. 10:59 Method Of Arrival: Ambulatory iw 10:59 Onset of symptoms was January 14, 2023. iw 11:01 No acute neurological deficit is noted. Pre-hospital glucose is not applicable to this iw patient. Initial Sepsis Screen: Does the patient meet any 2 criteria? No. Patient's initial sepsis screen is negative. Does the patient have a suspected source of infection? No. Patient's initial sepsis screen is negative. Risk Assessment: Do you want to hurt yourself or someone else? Patient reports no desire to harm self or others. 11:01 Acuity: JAK 3 iw Stroke Activation: Symptom onset > 6 hours Physician: Stroke Attending; Name: ; Notified At: ; Arrived At: Physician: Chief Stroke Resident; Name: ; Notified At: ; Arrived At: Physician: Stroke Resident; Name: ; Notified At: ; Arrived At: Physician: ED Attending; Name: ; Notified At: ; Arrived At: Physician: ED Resident; Name: ; Notified At: ; Arrived At: Historical: - Allergies: 11:01 Valium; iw - PMHx: 11:01 Anxiety; Arthritis; depressive disorder; diabetes mellitus; fatty liver; Hypertensive iw disorder; psoriasis; scoliosis; - PSHx: 11:01 dhaval knee replacements; hysterectomy; Tonsillectomy; iw - Social history:: Smoking status: Patient reports the use of cigarette tobacco products, denies chronic smoking, but will smoke occasionally. Screenin:34 [facility] ED Fall Risk Assessment (Adult) History of falling in the last 3 months, ap3 including since admission Yes- fall prone (multiple falls) (3 pts) Confusion or Disorientation No (0 pts) Intoxicated or Sedated No (0 pts) Impaired Gait Yes (1 pt) Mobility Assist Device Used Yes (1 pt) Altered Elimination No (0 pt). Abuse screen: Denies threats or abuse. Nutritional screening: No deficits noted. Tuberculosis screening: No symptoms or risk factors identified. Assessment: 11:33 General: Appears in no apparent distress. Behavior is cooperative, appropriate for age. ap3 Pain: Denies pain. Neuro: Level of Consciousness is awake, alert, obeys commands, Oriented to person, place, time, situation, Reports eyes crossing and "feeling weird" since TIA 2 weeks ago. Vital Signs: 10:59 Pulse 62; Resp 16; Temp 98.4; Pulse Ox 96% ; Weight 106.59 kg; Height 5 ft. 3 in. ; iw 12:27 BP 131 / 63; Pulse 65; Pulse Ox 98% on R/A; ap3 10:59 Body Mass Index 41.63 (106.59 kg, 160.02 cm) iw NIH Stroke Scale Scores: 11:10 NIHSS Score: 0 ms3 ED Course: 10:56 Patient arrived in ED. im 10:57 Ricardo Boyce DO is Attending Physician. ms3 11:01 Triage completed. iw 11:01 Arm band placed on. iw 11:08 Charis Sexton, LEIGH is Primary Nurse. ap3 11:33 Initial lab(s) drawn, by ut, sent to lab. Inserted saline lock: 20 gauge in right ap3 antecubital area, using aseptic technique. Blood collected. 11:35 Patient has correct armband on for positive identification. Placed in gown. Bed in low ap3 position. Call light in reach. Side rails up X2. monitoring engineer on. Pulse ox on. NIBP on. 11:38 CXR XRAY In Process Unspecified. EDMS 11:41 CT Head Brain wo Cont In Process Unspecified. EDMS 12:28 Moreno Lindsay MD is Referral Physician. ms3 12:29 Jhony Kaur MD is Referral Physician. ms3 12:36 No provider procedures requiring assistance completed. IV discontinued, intact, ld1 bleeding controlled, No redness/swelling at site. Administered Medications: No medications were administered Medication: 11:35 VIS not applicable for this client. ap3 Outcome: 12:29 Discharge ordered by . ms3 12:36 Discharged to home ambulatory. ld1 12:36 Condition: stable 12:36 Discharge instructions given to patient, Instructed on discharge instructions, follow up and referral plans. Demonstrated understanding of instructions, follow-up care. 12:36 Patient left the ED. ld1 NIH Stroke Scale - NIH Stroke Score Date: 01/29/2023 Time: 11:10 Total Score = 0 10. Dysarthria (speech clarity - read or repeat words) - 0(Normal) 11. Extinction and Inattention (visual/tactile/auditory/spatial/personal) - 0(No abnormality) 1a. Level of Consciousness (LOC) - 0(Alert) 1b. Level of Consciousness (LOC) (Month \\T\\ Age) - 0(Both) 1c. LOC Commands (Open \\T\\ Closes Eyes/Pull Over Machine Operator) - 0(Both) 2. Best Gaze (Lateral Gaze Paresis) - 0(Normal) 3. Visual Field Loss - 0(No visual loss) 4. Facial Palsy - 0(Normal) 5a. Left Arm: Motor (10-second hold) - 0(No drift) 5b. Right Arm: Motor (10-second hold) - 0(No drift) 6a. Left Leg: Motor (5-second hold - always test supine) - 0(No drift) 6b. Right Leg: Motor (5-second hold - always test supine) - 0(No drift) 7. Limb Ataxia (finger/nose \\T\\ heel/wells - test with eyes open) - 0(Absent) 8. Sensory Loss (pinprick arms/legs/face) - 0(Normal) 9. Best Language: Aphasia (description/naming/reading) - 0(No aphasia) Initials: ms3 Signatures: Dispatcher [employer] EDMS Anyi Kim RN RN iw Prokisch, Amanda, RN RN ap3 Ricardo Boyce DO DO ms3 Susanne Boyce RN RN ld1 Violetta Guerrier Corrections: (The following items were deleted from the chart) 11:06 10:59 Resp 16bpm; Pulse Ox 96%; Temp 98.4F; iw iw
[2023-01-29] MEDS ORDERED: TETRACAINE HCL 0.5% 4ML OPTH ONE (12:32)
[2023-01-29 13:11] VITALS: TEMP 98.4
[2023-01-29 13:12] VITALS: BP 131/63; O2SAT 98
--- NOTE | 2023-01-29 16:25 | EKG ---
Test Date: 2023-01-29 Test Time: 12:04:30 Director Of Sales Marketing: TIP MEASUREMENT RESULTS: Intervals: Rate: 50 ND: 142 QRSD: 82 QT: 448 QTc: 408 [place]: P: 75 ND: 142 QRS: -34 T: 62 INTERPRETIVE STATEMENTS: Sinus bradycardia Left axis deviation Cannot rule out Anterior infarct, age undetermined Abnormal ECG Compared to ECG 01/09/2023 09:22:41 Myocardial infarct finding now present Electronically Signed On 01-29-23 16:24:58 CDT by Nasim Zapien
== END 2023-01-29 12:36 | disposition home or self-care (01) ==
LOC: ER 10:55
DX: H57.12 Ocular pain, left eye (principal); R00.2 Palpitations; R07.0 Pain in throat; I10 Essential (primary) hypertension; F17.210 Nicotine dependence, cigarettes, uncomplicated; Z88.5 Allergy status to narcotic agent; Z96.653 Presence of artificial knee joint, bilateral
CPT/HCPCS: 36415; 70450; 71045; 80048; 81001; 83735; 84484; 85025; 85610; 85730; 93005; 99284